=== PATIENT | female | born 1980 | race Caucasian/White ===

== ENCOUNTER 2020-05-17 15:22 | Outpatient (REF) | payer BC, SELFPAY ==
--- NOTE | 2020-05-17 | XR_ITS ---
EXAMINATION: XR SHOULDER, RIGHT CLINICAL INFORMATION: Right shoulder sprain COMPARISON: 01/19/2019 TECHNIQUE: AP external rotation, Grashey, scapular Y, and axillary views of the right shoulder. FINDINGS: No fracture or dislocation. The glenohumeral joint is well aligned. The joint space is maintained. The acromioclavicular joint is intact with mild hypertrophic degenerative change. Soft tissue calcification seen on the axillary view adjacent to the greater tuberosity of the humerus suggestive of calcific tendinosis of the rotator cuff. This is similar to prior. The visualized ribs are intact. The visualized lung is clear. IMPRESSION: Mild degenerative change at the acromioclavicular joint. Persistent soft tissue calcification suggestive of calcific tendinosis of the rotator cuff.
== END 2020-05-17 15:23 | disposition home or self-care (01) ==
LOC: HO.XRAY 15:22
PROVIDERS: PCP Internal Medicine; Visit Provider Internal Medicine
DX: S46.911A Strain of unspecified muscle, fascia and tendon at shoulder and upper arm level, right arm, initial encounter (principal)
CPT/HCPCS: 73030

== ENCOUNTER 2022-01-21 13:50 | Outpatient (REF) | payer BC, SELFPAY ==
--- NOTE | ~2022-01-21 | XR_ITS ---
EXAMINATION: XR CHEST CLINICAL INFORMATION: Cough. Right chest wall pain. Rule out pneumonia. COMPARISON: None TECHNIQUE: 2 views of the chest were obtained. FINDINGS: No significant abnormality is noted involving the heart, lungs, mediastinum, bony thorax or soft tissues. Bilateral breast prostheses. Status post cholecystectomy. XR/XR chest 2V IMPRESSION: Unremarkable examination.
== END 2022-01-21 13:51 | disposition home or self-care (01) ==
LOC: HO.XRAY 13:50
PROVIDERS: Visit Provider Internal Medicine
DX: R05.9 Cough, unspecified (principal); R07.89 Other chest pain; Z90.49 Acquired absence of other specified parts of digestive tract
CPT/HCPCS: 71046

== ENCOUNTER 2023-06-15 10:28 | Outpatient (REF) | payer BC, SELFPAY ==
--- NOTE | ~2023-06-15 | XR_ITS ---
EXAMINATION: XR WRIST, RIGHT XR HAND, RIGHT CLINICAL INFORMATION: Right hand and wrist pain. Question spur, osteoarthritis COMPARISON: March 10, 2018. TECHNIQUE: PA, oblique, lateral and navicular views of the right hand and wrist. FINDINGS: RIGHT WRIST: Moderate degenerative changes in the first carpometacarpal joint with joint space narrowing and hypertrophic change. Bone mineralization is normal. No displaced fracture. RIGHT HAND: Bone mineralization is normal. No displaced fracture. Alignment is preserved. XR/XR hand wrist RT IMPRESSION: 1. Moderate degenerative changes in the first carpometacarpal joint. 2. No displaced fracture. Recommend follow-up imaging in 10-14 days if fracture is suspected.
== END 2023-06-15 10:29 | disposition home or self-care (01) ==
LOC: HO.XRAY 10:28
PROVIDERS: PCP Internal Medicine; Visit Provider Internal Medicine
DX: M25.531 Pain in right wrist (principal); M79.641 Pain in right hand
CPT/HCPCS: 73110; 73130

== ENCOUNTER 2024-06-08 15:15 | Outpatient (REF) | payer BC, SELFPAY ==
[2024-06-08 15:31] LABS: MANUAL DIFF FLAG NO
[2024-06-08 15:42] LABS: Basophils Percent Auto 0.7 % (0-2); Eosinophils Absolute Auto 0.3 X10*3/uL (0.0-0.4); Eosinophils Percent Auto 5.2 % (0-4); Hematocrit 27.1 % (37.0-47.0); Imm Gran Abs Auto 0.03 X10*3/uL (0.00-0.03); Imm Gran Pct Auto 0.5 % (0.0-0.4); Lymphocytes Absolute Auto 1.9 X10*3/uL (1.2-4.9); Lymphocytes Percent Auto 32.1 % (20-40); Mean Corpuscular HGB Conc 29.5 g/dl (31.0-35.0); Mean Corpuscular Hemoglobin 19.1 pg (27.0-33.0); Monocytes Absolute Auto 0.5 X10*3/uL (0.1-1.2); Monocytes Percent Auto 7.9 % (2-11); Neutrophils Absolute Auto 3.2 x10*3/uL (2.0-8.3); Neutrophils Percent Auto 53.6 % (45-73); Platelet Count 350 X10*3/uL (160-400); Red Blood Count 4.18 X10*6/uL (4.20-5.50); Red Cell Distribution Width 18.1 % (11.0-16.0); White Blood Count 5.9 X10*3/uL (4.8-10.8)
[2024-06-08 15:43] LABS: Mean Corpuscular Volume 64.8 fL (80.0-98.0)
[2024-06-08 16:27] LABS: Alanine Aminotransferase 16 U/L (0-31); Albumin Level 4.3 g/dL (3.5-5.0); Alkaline Phosphatase 58 U/L (39-117); Anion Gap 11 (12-20); Aspartate Amino Transferase 26 U/L (5-31); Bilirubin Total 0.3 mg/dL (0.0-1.0); Blood Urea Nitrogen 18 mg/dL (9-16); Calcium 9.5 mg/dL (8.4-10.2); Carbon Dioxide 28 mmol/L (22-29); Chloride 104 mmol/L (96-108); Cholesterol 166 mg/dL (<200); Estimated Glomerular Filt Rate > 60; Glucose Random 91 mg/dL (60-115); Potassium 4.1 mmol/L (3.3-5.1); Sodium 139 mmol/L (135-145); Total Protein 7.4 g/dL (6.5-8.0)
[2024-06-08 16:44] LABS: Free T4 (Free Thyroxine) 1.01 ng/dL (0.71-1.85); Thyroid Stimulating Hormone 0.82 uIU/mL (0.32-4.0)
[2024-06-08 16:50] LABS: Vitamin B12 791 pg/mL (200-900)
[2024-06-09 07:54] LABS: Follicle Stimulating Hormone 7.1 mIU/mL; Lutenizing Hormone 5.3 mIU/mL
== END 2024-06-08 15:16 | disposition home or self-care (01) ==
LOC: HO.LAB 15:15
PROVIDERS: PCP Internal Medicine; Visit Provider Internal Medicine
DX: N95.9 Unspecified menopausal and perimenopausal disorder (principal); R63.5 Abnormal weight gain; R53.83 Other fatigue
CPT/HCPCS: 36415; 80053; 82465; 82607; 83001; 83002; 84439; 84443; 85025

== ENCOUNTER 2024-06-16 15:51 | Outpatient (REF) | payer BC, SELFPAY ==
[2024-06-16 16:07] LABS: MANUAL DIFF FLAG NO
[2024-06-16 16:57] LABS: Basophils Absolute Auto 0.1 X10*3/uL (0.0-0.2); Basophils Percent Auto 0.7 % (0-2); Eosinophils Absolute Auto 0.3 X10*3/uL (0.0-0.4); Eosinophils Percent Auto 4.8 % (0-4); Hematocrit 29.1 % (37.0-47.0); Hemoglobin 8.4 g/dl (12.0-16.0); Imm Gran Abs Auto 0.02 X10*3/uL (0.00-0.03); Imm Gran Pct Auto 0.3 % (0.0-0.4); Lymphocytes Absolute Auto 2.1 X10*3/uL (1.2-4.9); Lymphocytes Percent Auto 30.5 % (20-40); Mean Corpuscular HGB Conc 28.9 g/dl (31.0-35.0); Mean Corpuscular Hemoglobin 19.4 pg (27.0-33.0); Mean Corpuscular Volume 67.1 fL (80.0-98.0); Mean Platelet Volume 10.3 fL (9.4-12.3); Monocytes Absolute Auto 0.9 X10*3/uL (0.1-1.2); Monocytes Percent Auto 12.8 % (2-11); Neutrophils Absolute Auto 3.5 x10*3/uL (2.0-8.3); Neutrophils Percent Auto 50.9 % (45-73); Platelet Count 408 X10*3/uL (160-400); Red Blood Count 4.34 X10*6/uL (4.20-5.50); Red Cell Distribution Width 19.6 % (11.0-16.0); White Blood Count 6.8 X10*3/uL (4.8-10.8)
[2024-06-16 17:17] LABS: Iron 14 mcg/dL (30-160); Percent Iron Saturation 4 % (15-50); Total Iron Binding Capacity 396 mcg/dL (228-428); Unsaturated Iron Binding 382 ug/dL
== END 2024-06-16 15:52 | disposition home or self-care (01) ==
LOC: HO.LAB 15:51
PROVIDERS: PCP Internal Medicine; Visit Provider Internal Medicine
DX: D64.9 Anemia, unspecified (principal)
CPT/HCPCS: 36415; 83540; 85025

== ENCOUNTER 2025-04-10 14:55 | Outpatient (REF) | payer BC, SELFPAY ==
[2025-04-10 16:16] LABS: MANUAL DIFF FLAG NO
[2025-04-10 16:30] LABS: Hematocrit 38.8 % (37.0-47.0); Hemoglobin 12.6 g/dl (12.0-16.0); Imm Gran Abs Auto 0.03 X10*3/uL (0.00-0.03); Imm Gran Pct Auto 0.4 % (0.0-0.4); Lymphocytes Absolute Auto 1.7 X10*3/uL (1.2-4.9); Mean Corpuscular HGB Conc 32.5 g/dl (31.0-35.0); Mean Corpuscular Hemoglobin 26.9 pg (27.0-33.0); Mean Corpuscular Volume 82.9 fL (80.0-98.0); NRBC Abs Auto 0.000 X10*3/uL (0.0-0.012); NRBC Pct Auto 0.0 /100WBC (0.0-0.2); Platelet Count 350 X10*3/uL (160-400); Red Blood Count 4.68 X10*6/uL (4.20-5.50); White Blood Count 8.4 X10*3/uL (4.8-10.8)
[2025-04-10 16:45] LABS: Appearance Urine Clear; Glucose Urine UA Negative (Negative); PH 6.0 (5.0-9.0); Specific Gravity - Urine 1.010 (1.005-1.025); UMIC TRIGGER UA YES
== END 2025-04-10 14:56 | disposition home or self-care (01) ==
LOC: HO.LAB 14:55
PROVIDERS: PCP Internal Medicine; Visit Provider Physician Assistant Medical
DX: R53.83 Other fatigue (principal); R10.31 Right lower quadrant pain; R55 Syncope and collapse; N92.6 Irregular menstruation, unspecified
CPT/HCPCS: 36415; 81001; 84443; 85025; 87086; 96127

== ENCOUNTER 2025-04-10 14:55 | Outpatient (AMB) | payer BC, SELFPAY ==
--- OUTSIDE RECORDS SUMMARY | 2025-04-08 00:53 | XMS_ITS | Continuity of Care Document ---
Author Organization [facility] ter Address [address] [place] [id number] Care Team Providers Care Photogeologist Name Role Phone Ambrose MONTES, Esthela Nuñez Primary Care Physician [phone] [id number] Date(s): 04/07/25 - 04/08/[address] [address]- Encounter Diagnosis Vasovagal syncope(Final) - 04/07/25 Lower abdominal pain(Final) - 04/07/25 Discharge Disposition: A-D/C Home Attending Physician: Jef Gallegos DO Admitting Physician: Jef Gallegos DO Referring Physician: Not on Staff, Referring MD Encounter Type: Disch ES Allergies, Adverse Reactions, Alerts Substance Criticality Severity Reaction Reaction Severity Status penicillin Rash Active sulfonamides Rash Active Shellfish Active Medications azelaic acid 15% topical gel 1 application, Topically, 2 times a day, # 30 Gm, 0 Refills, Maintenance, 07/06/24 10:59:00 AM EST, Gel, Partial fill upon patient request if the prescription is for a schedule II opioid drug. Start Date: 07/06/24 Status: Ordered Medication Dispense Status: Completed Quantity: 30.0 Unit: g Total Allowed Fills: 1 Fills Dispensed: 0 Diflucan 150 mg oral tablet 1 tablet = 150 mg, By Mouth, Once, # 1 tablet, 0 Refills, Soft Stop, 03/19/25 2:20:00 PM EDT, Tablet, [facility] # [facility], Partial fill upon patient request if the prescription is for a schedule II opioid drug., 150.1, cm, 03/12/25 14:05:00 EDT, Height, 61.7, kg, 09/19/24 16:50:00 EST, Dry Weight Start Date: 03/19/25 Status: Ordered Medication Dispense Status: Completed Quantity: 1.0 Unit: tablet Total Allowed Fills: 1 Fills Dispensed: 0 Estradiol Patch 0.05 mg/24 hours twice weekly transdermal film, extended release 1 patch, Topically, Every Wednesday and , # 26 patch, 4 Refills, Maintenance, 03/12/25 2:36:00 PM EDT, [facility] # [facility], Partial fill upon patient request if the prescription is for a scheduleII opioid drug., 1 patch Topically Every Wednesday and , 150.1, cm, 03/12/25 14:05:00 EDT, Height, 61.7, kg, 09/19/24 16:50:00 EST, Dry Weight Start Date: 03/12/25 Status: Ordered Medication Dispense Status: Completed Quantity: 26.0 Unit: patch Total Allowed Fills: 5 Fills Dispensed: 0 Mirena 52 mg intrauterine device 1 each = 52 mg, Once, 0 Refills, Maintenance, 10/18/24 10:00:00 AM EDT, Partial fill upon patient request if the prescription is for a schedule II opioid drug. Start Date: 10/18/24 Status: Ordered Medication Dispense Status: Completed Total Allowed Fills: 1 Fills Dispensed: 0 Multivitamin 0 Refills, Maintenance, 07/06/24 11:00:00 AM EST, Partial fill upon patient request if the prescription is for a schedule II opioid drug. Start Date: 07/06/24 Status: Ordered Medication Dispense Status: Completed Total Allowed Fills: 1 Fills Dispensed: 0 norethindrone 5 mg oral tablet 5 mg, 1, tablet, By Mouth, Daily, # 90 tablet, Refills 4, Tot. Refills 4, Maintenance, 03/12/25 2:36:00 PM EDT, Route to Pharmacy Electronically, [facility] # [facility], Partial fill upon patient requestif the prescription is for a schedule II opioid drug., 150.1, cm, 03/12/25 14:05:00 EDT, Height, 61.7, kg, 09/19/24 16:50:00 EST, Dry Weight Start Date: 03/12/25 Status: Ordered Medication Dispense Status: Completed Quantity: 90.0 Unit: tablet Total Allowed Fills: 5 Fills Dispensed: 0 Probiotic Formula By Mouth, Daily, 0 Refills, Maintenance, 07/06/24 11:00:00 AM EST, Partial fill upon patient requestif the prescription is for a schedule II opioid drug. Start Date: 07/06/24 Status: Ordered Medication Dispense Status: Completed Total Allowed Fills: 1 Fills Dispensed: 0 Vitamin C 250 mg oral tablet 1 tablet = 250 mg, By Mouth, Daily, # 30 tablet, 0 Refills, Maintenance, 07/06/24 11:00:00 AM EST, Tablet, Partial fill upon patient request if the prescription is for a schedule II opioid drug. Start Date: 07/06/24 Status: Ordered Medication Dispense Status: Completed Quantity: 30.0 Unit: tablet Total Allowed Fills: 1 Fills Dispensed: 0 ZyrTEC 10 mg oral tablet 1 tablet = 10 mg, By Mouth, Daily, # 30 tablet, 0 Refills, Maintenance, 12/11/24 11:42:00 AM EDT, Tablet, Partial fill upon patient request if the prescription is for a schedule II opioid drug. Start Date: 12/11/24 Status: Ordered Medication Dispense Status: Completed Quantity: 30.0 Unit: tablet Total Allowed Fills: 1 Fills Dispensed: 0 Problem List Condition Confirmation Course Effective Dates Status [facility] atus Informant IUD check up Confirmed Active Iron deficiency anemia Confirmed Active Fibroid uterus Confirmed Active Results Radiology Reports * Exam Date Time Procedure Performing Provider Status 04/08/25 12:13 AM US Pelvic Transvaginal Au th (Verified) Notes: (US Pelvic Transvaginal) Reason For Exam: Pelvic Pain;Other: RESULT: US Pelvic Transvaginal US Pelvic Transabdominal, US Pelvic Doppler Comp, US Pelvic Transvaginal Hx of Present Illness: Pt from home post syncopal episode * fall, bilateral ovary pain.pt had a feeling as thoughs she needed to use the bathroom, began to see white spots, ringing in my ear +nausea Pt broke her fall w arms outstretched, supporeted herself by tub,; Reason: Other:; Pelvic Pain; Clinical Question(s): Torsion; Order Comment: US Pelvic Non-Ob Comp Prep COMPARISON: CT abdomen pelvis 04/07/2025, pelvic ultrasound 09/19/2024 TECHNIQUE: Transabdominal and transvaginal pelvic ultrasound with grayscale, color Doppler, and spectral Doppler analysis. 3-D rendered images were obtained to further evaluate uterine and endometrial morphology. FINDINGS: UTERUS: Size: 9.6 x 6.5 x 7.0 cm, volume 226.9 cc. Endometrial thickness: 0.8 cm. Morphology: Partially visualized intrauterine device, which is mostly obscured by the overlying fibroid. Intramural fibroid in the anterior uterine fundus measuring 3.6 x 2.6 x 3.4 cm. RIGHT OVARY: Size: 2.9 x 1.4 x 2.1 cm, volume 4.4 cc. Morphology: Normal echotexture. No pathologic cysts or mass. Normal arterial and venous waveforms. LEFT OVARY: Size: 2.1 x 1.0 x 2.6 cm, volume 2.9 cc. Morphology: Normal echotexture. No pathologic cysts or mass. Normal arterial and venous waveforms. ADNEXA: Normal. No adnexal masses or fluid collections. IMPRESSION: No evidence of torsion. Interval enlargement of the uterine fibroid now measuring up to 3.6 cm. IUD not well visualized, obscured by the fibroid. I have personally reviewed the images and I agree with this report. WSN: [id number] Ordering Physician: Jef Gallegos Dictated By: Saumya Vick MD Dictated Date/Time: 04/08/25 4:20 am Reviewed By: Ariane Katz MD Signed By: Ariane Katz MD Signed Date/Time: 04/08/25 4:25 am Transcribed By: MELINDA Transcribed Date/Time: 04/08/25 0:27 am * Exam Date Time Procedure Performing Provider Status 04/08/25 12:13 AM US Pelvic Doppler Comp Au th (Verified) Notes: (US Pelvic Doppler Comp) Reason For Exam: Pelvic Pain;Other: RESULT: US Pelvic Doppler Comp US Pelvic Transabdominal, US Pelvic Doppler Comp, US Pelvic Transvaginal Hx of Present Illness: Pt from home post syncopal episode * fall, bilateral ovary pain.pt had a feeling as thoughs she needed to use the bathroom, began to see white spots, ringing in my ear +nausea Pt broke her fall w arms outstretched, supporeted herself by tub,; Reason: Other:; Pelvic Pain; Clinical Question(s): Torsion; Order Comment: US Pelvic Non-Ob Comp Prep COMPARISON: CT abdomen pelvis 04/07/2025, pelvic ultrasound 09/19/2024 TECHNIQUE: Transabdominal and transvaginal pelvic ultrasound with grayscale, color Doppler, and spectral Doppler analysis. 3-D rendered images were obtained to further evaluate uterine and endometrial morphology. FINDINGS: UTERUS: Size: 9.6 x 6.5 x 7.0 cm, volume 226.9 cc. Endometrial thickness: 0.8 cm. Morphology: Partially visualized intrauterine device, which is mostly obscured by the overlying fibroid. Intramural fibroid in the anterior uterine fundus measuring 3.6 x 2.6 x 3.4 cm. RIGHT OVARY: Size: 2.9 x 1.4 x 2.1 cm, volume 4.4 cc. Morphology: Normal echotexture. No pathologic cysts or mass. Normal arterial and venous waveforms. LEFT OVARY: Size: 2.1 x 1.0 x 2.6 cm, volume 2.9 cc. Morphology: Normal echotexture. No pathologic cysts or mass. Normal arterial and venous waveforms. ADNEXA: Normal. No adnexal masses or fluid collections. IMPRESSION: No evidence of torsion. Interval enlargement of the uterine fibroid now measuring up to 3.6 cm. IUD not well visualized, obscured by the fibroid. I have personally reviewed the images and I agree with this report. WSN: [id number] Ordering Physician: Jef Gallegos Dictated By: Saumya Vick MD Dictated Date/Time: 04/08/25 4:20 am Reviewed By: Ariane Katz MD Signed By: Ariane Katz MD Signed Date/Time: 04/08/25 4:25 am Transcribed By: MELINDA Transcribed Date/Time: 04/08/25 0:27 am * Exam Date Time Procedure Performing Provider Status 04/08/25 12:13 AM US Pelvic Transabdominal Auth (Verified) Notes: (US Pelvic Transabdominal) Reason For Exam: Pelvic Pain;Other: RESULT: US Pelvic Transabdominal US Pelvic Transabdominal, US Pelvic Doppler Comp, US Pelvic Transvaginal Hx of Present Illness: Pt from home post syncopal episode * fall, bilateral ovary pain.pt had a feeling as thoughs she needed to use the bathroom, began to see white spots, ringing in my ear +nausea Pt broke her fall w arms outstretched, supporeted herself by tub,; Reason: Other:; Pelvic Pain; Clinical Question(s): Torsion; Order Comment: US Pelvic Non-Ob Comp Prep COMPARISON: CT abdomen pelvis 04/07/2025, pelvic ultrasound 09/19/2024 TECHNIQUE: Transabdominal and transvaginal pelvic ultrasound with grayscale, color Doppler, and spectral Doppler analysis. 3-D rendered images were obtained to further evaluate uterine and endometrial morphology. FINDINGS: UTERUS: Size: 9.6 x 6.5 x 7.0 cm, volume 226.9 cc. Endometrial thickness: 0.8 cm. Morphology: Partially visualized intrauterine device, which is mostly obscured by the overlying fibroid. Intramural fibroid in the anterior uterine fundus measuring 3.6 x 2.6 x 3.4 cm. RIGHT OVARY: Size: 2.9 x 1.4 x 2.1 cm, volume 4.4 cc. Morphology: Normal echotexture. No pathologic cysts or mass. Normal arterial and venous waveforms. LEFT OVARY: Size: 2.1 x 1.0 x 2.6 cm, volume 2.9 cc. Morphology: Normal echotexture. No pathologic cysts or mass. Normal arterial and venous waveforms. ADNEXA: Normal. No adnexal masses or fluid collections. IMPRESSION: No evidence of torsion. Interval enlargement of the uterine fibroid now measuring up to 3.6 cm. IUD not well visualized, obscured by the fibroid. I have personally reviewed the images and I agree with this report. WSN: [id number] Ordering Physician: Jef Gallegos Dictated By: Saumya Vick MD Dictated Date/Time: 04/08/25 4:20 am Reviewed By: Ariane Katz MD Signed By: Ariane Katz MD Signed Date/Time: 04/08/25 4:25 am Transcribed By: MELINDA Transcribed Date/Time: 04/08/25 0:27 am * Exam Date Time Procedure Performing Provider Status 04/07/25 7:[address] Abd/Pelvis W/ IV Contrast Only Auth (Verified) Notes: (CT Abd/Pelvis W/ IV Contrast Only) Reason For Exam: sudden lower abdominal pain;Other: RESULT: CT Abd/Pelvis W/ IV Contrast Only CT Abd/Pelvis W/ IV Contrast Only Hx of Present Illness: Pt from home post syncopal episode * fall, bilateral ovary pain.pt had a feeling as thoughs she needed to use the bathroom, began to see white spots, ringing in my ear +nausea Pt broke her fall w arms outstretched, supporeted herself by tub,; Reason: Other:; sudden lower abdominal pain; Clinical Question(s): Appendicitis; Order : TECHNIQUE: Spiral CT through the abdomen and pelvis with IV contrast formatted in 3 planes. 80 cc of Isovue 300 was administered intravenously. This study was performed without oral contrast. Weight-based protocol using automatic tube modulation was used to optimize exposure parameters. CTDIvol Body: 13.20 mGy, DLP Body: 648 mGy*cm. COMPARISON: None. FINDINGS: Hair Clipper Power View Findings, Lines and Tubes: None. Visualized Chest: Lung bases are clear. No pleural effusion. The heart is normal in size. No pericardial effusion. Diaphragm: Normal. Liver: Hypoattenuating 9 mm focus within the inferior right hepatic lobe likely cyst or hemangioma. Gallbladder: Absent consistent with prior cholecystectomy. Bile ducts: No biliary ductal dilation. Spleen: Normal. Pancreas: Normal. Adrenal glands: Normal. Kidneys and ureters: No hydronephrosis, stones, or suspicious masses. Bladder: Normal. Reproductive organs: The uterus is slightly enlarged measuring up to 11.5 cm in caudocranial dimensions. Intrauterine device in place. There is a fibroid within the anterior aspect of the uterus measuring up to 3.2 x 2.7 cm. No adnexal mass. Stomach, small bowel, and large bowel: Normal. Appendix: Normal. Peritoneum and retroperitoneum: No ascites or pneumoperitoneum. No omental or mesenteric lesions. Lymph nodes: No enlarged lymph nodes. Blood vessels: Normal. No aneurysm. No evidence of venous thrombosis. Abdominal and pelvic wall: Unremarkable. Bones: No acute abnormality. IMPRESSION: No acute findings within the abdomen or pelvis. The uterus appears slightly enlarged with an intrauterine device in place and a prominent fibroid. Denies any further evaluated with ultrasound if clinically indicated. WSN: [id number] Ordering Physician: Jef Gallegos Dictated By: Adithya Lewis DO Dictated Date/Time: 04/07/25 8:12 pm Reviewed By: Adithya Lewis DO Signed By: Adithya Lewis DO Signed Date/Time: 04/07/25 8:12 pm Transcribed By: MELINDA Transcribed Date/Time: 04/07/25 8:00 pm Vital Signs Most recent to oldest [Reference Range]: 1 2 3 Height 147 cm (04/07/25 9:35 PM) 147 cm (04/07/25 3:01 PM) Weight 60 kg (04/07/25 9:35 PM) 60 kg (04/07/25 3:01 PM) Oxygen Saturation [94-100 %] 100 % (04/08/25 12:51 AM) 100 % (04/07/25 9:35 PM) 99 % (04/07/25 3:01 PM) Pulse Rate [55-90 bpm] 99 bpm *H* (04/08/25 12:51 AM) 99 bpm *H* (04/07/25 9:35 PM) 75 bpm (04/07/25 3:01 PM) Body Mass Index [18.5-24.99 kg/m2] 27.77 kg/m2 *H* (04/07/25 9:35 PM) 27.77 kg/m2 *H* (04/07/25 3:01 PM) Blood Pressure [90-138/55-84 mm Hg] 135/82mm Hg (04/08/25 12:51 AM) 127/78mm Hg (04/07/25 9:35 PM) 135/86mm Hg (04/07/25 3:01 PM) Respiratory Rate [16-30 br/min] 16 br/min (04/08/25 12:51 AM) 16 br/min (04/07/25 9:35 PM) 18 br/min (04/07/25 3:01 PM) Temperature [96.8-100.4 DegF] 98.1 DegF (04/08/25 12:51 AM) 98.3 DegF (04/07/25 9:35 PM) 97.6 DegF (04/07/25 3:01 PM) Mode of Delivery (Oxygen) Room air (04/08/25 12:51 AM) Room air (04/07/25 9:35 PM) Room air (04/07/25 3:01 PM) Blood pressure sites Arm, left (04/08/25 12:51 AM) Arm, left (04/07/25 9:35 PM) Arm, left (04/07/25 3:01 PM) Temperature Route Oral (04/08/25 12:51 AM) Oral (04/07/25 9:35 PM) Oral (04/07/25 3:01 PM) Dry Weight 60 kg (04/07/25 9:35 PM) 60 kg (04/07/25 3:01 PM) Weight Obtained Via Patient/family state d (04/07/25 3:01 PM) Dry Weight Obtained Via Patient/family s tated (04/07/25 3:01 PM) Social History Social History Type Response Smoking Status Never (less than 100 in lifetime) entered on: 12/11/24 Sexual Orientation Self described orien tation: ; Straight or heterosexual Gender Identity Gender identity: Sex Sex Representation Female (finding) Status Not EKG study * Event Display: ECG 12-Lead Authored Date: Please click on pdf link to open report * Event Display: ECG 12-Lead Authored Date: Ventricular Rate: 61 BPM Atrial Rate: 61 BPM P-R Interval: 140 ms QRS Duration: 72 ms Q-T Interval: 410 ms QTC Calculation(Bazett): 412 ms P [place]: 18 degrees R [place]: 37 degrees T [place]: 47 degrees Normal sinus rhythm Normal ECG No previous ECGs available Confirmed by MODESTO MARTI MD ([id number]) on 04/08/2025 1:46:10 PM [place]: MODESTO MARTI MD Patient Care team information Care Team Personnel Name: Esthela Boggs MD Position: Reference Physician Member Role: PCP Address: [address] [place] [id number] Telecom: Care Team Related Persons Name: JEFFREY PROCTOR Name: CHELSEA MONREAL Name: CHELSEA GARCIA Insurance Providers Guarantor name: KYREEMurtaza PROCTOR Health Plan Information #: 1 Payer: [facility] Payer Identifier: NA Member Number: [id number] Group Number: [id number] Subscriber Identifier: [id number] Relationship to Subscriber: self Coverage Type: NA Coverage Verification Date: NA Telecom: NA Address: NA
--- NOTE | 2025-04-10 08:19 | A.OFFPC_ITS ---
Vital Signs 04/10/25 08:21 Height 4 ft 11 in Weight 135 lb BMI 27.3 BP 136/80 Blood Pressure Location Rt brachial Position Sitting Pulse 76 Pulse Source Pulse Oximeter Temp 98.5 F Temp Source Temporal Artery Scan Pulse Oximetry (%) 99 Oxygen Delivery Method Room Air Intake Visit Reasons: Hospital F/U Wedger And Gluer Required: No Accompanied by: Self / Same As Patient Allergies amoxicillin Allergy (Verified 04/10/25 15:03) Hives shellfish derived (shellfish) Allergy (Verified 04/10/25 15:03) Unknown Sulfa (Sulfonamide Antibiotics) Allergy (Verified 04/12/25 20:19) Vomiting Medication List - Last Reconciled 04/16/25 by CLAIRE Valencia estradiol 1 patch transdermal 2XW fluconazole 150 mg PO Q3D 2 doses nitrofurantoin monohyd/m-cryst 100 mg 100 mg PO Q12H 7 days norethindrone acetate 5 mg PO BID Tobacco use date assessed: 04/10/25 Dental Screening Dental Screen Date: 04/10/25 Did you have a dental visit in the last 12 months?: Yes Did you have a dental problem in the last 6 months where you did not have access to dental care?: No HPI HPI Comments History of Present Illness Details The patient is a 44-year-old female presenting with severe abdominal pain and syncope. The episode began on a Wednesday, 04/07 while she was at home, experiencing sudden severe abdominal pain that led to syncope. She was taken to the hospital where a vasovagal reaction was suspected, and imaging studies were performed, including a CT scan and pelvic ultrasound, which showed no signs of rupture or kidney stones. The patient reports ongoing lower abdominal pain, particularly on the right side, exacerbated by movement and pressure. She also experiences fatigue and bloating, with a history of perimenopausal symptoms including heavy bleeding and fibroid growth. 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 She has an IUD in place. The patient has a history of two sections and a laparoscopic cholecystectomy. She has been managing perimenopausal symptoms with hormonal treatments, including an IUD and estrogen therapy, but continues to experience irregular bleeding. Patient was informed and verbally consented to the use of an ambient scribe for clinic note documentation during this visit. [facility] Medical History (Updated 04/16/25 @ 10:59 by CLAIRE Valencia) Abdominal pain Fatigue Flank pain, acute Family History (Updated 04/10/25 @ 15:07 by Katelin Ramirez MA) Mother No problems noted. Father No problems noted. Social History Housing: House Patient Tobacco Use Status: Never used Tobacco e-Cigarette/Vaping Use: Never Used Advance Directives: No Advance Directives Information Provided: Yes service: No Current occupational status: employed Cognitive needs: No Hearing needs: No Vision needs: Yes (rx glasses) Questionnaire PHQ-9 Over the last 2 weeks, how often have you been bothered by any of the following problems? 1. Little interest or pleasure in doing things: not at all 2. Feeling down, depressed, or hopeless: not at all 3. Trouble falling or staying asleep, or sleeping too much: not at all 4. Feeling tired or having little energy: not at all 5. Poor appetite or overeating: not at all 6. Feeling bad about yourself - or that you are a failure or have let yourself or your family down: not at all 7. Trouble concentrating on things, such as reading the newspaper or watching television: not at all 8. Moving or speaking so slowly that other people could have noticed. Or the opposite - being so fidgety or restless that you have been moving around a lot more than usual: not at all 9. Thoughts that you would be better off or of hurting yourself in some way: not at all Total score: 0 Source: Developed by Drs. Adithya Nunes, Xochilt Crowell, Oscar Batista and colleagues, with an educational eric from [employer]. Thrive Questionnaire Date Thrive assessed: 04/10/25 I am a: Patient Within the past 12 months, did the food you bought not last and you didn't have the money to get more?: Never true Within the past 12 months, did you worry whether your food would run out before you got money to buy more?: Never true Do you have trouble paying for medicines?: No Do you have trouble getting transportation to medical appointments?: No Do you have trouble paying your heating and electricity bill?: No Do you have trouble taking care of your child, family member or friend?: No Do you have trouble with day-to-day activities such as bathing, preparing meals, shopping, managing finances, etc.?: No Are you currently unemployed and looking for a job?: No Are you interested in more education?: No THRIVE Score: 0 AUDIT C Alcohol Use Questionnaire (AUDIT-C) 1. How often do you have a drink containing alcohol?: Monthly or less (sometimes) 2. How many drinks containing alcohol do you have on a typical day when you are drinking?: 1 or 2 3. How often do you have six or more drinks on one occasion?: Less than monthly Total Score: 2 MELY-7 AMB Questionnaire MELY-7 Date MELY - 7 assessed: 04/10/25 Feeling nervous, anxious, or on edge: 0 = Not at all Not being able to stop or control worryin = Not at all Worrying too much about different things: 0 = Not at all Trouble relaxin = Not at all Being so restless that it is hard to sit still: 0 = Not at all Becoming easily annoyed or irritable: 0 = Not at all Feeling afraid as if something awful might happen: 0 = Not at all Total MELY-7 score (0-4 normal; 5-9 mild; 10-14 moderate; 15-21 severe): 0 Source: Developed by Drs. Adithya Nunes, Xochilt Crowell, Oscar Batista and colleagues, with an educational eric from [employer]. Review of Systems Const Details: CONSTITUTIONAL Negative HEAD/NECK Negative RESPIRATORY Negative CARDIOVASCULAR Negative GASTROINTESTINAL Reports severe abdominal pain, bloating, and constipation. Denies diarrhea GENITOURINARY Reports irregular bleeding and history of fibroids. Denies changes in urination frequency or dysuria. MUSCULOSKELETAL Negative NEUROLOGICAL Reports syncope and fatigue. PSYCHIATRIC Negative Physical exam (Primary Care) Vital Signs: Last Vital Signs Temp 98.5 F 04/10/25 08:21 Pulse 76 04/10/25 08:21 BP 136/80 04/10/25 08:21 Pulse Ox 99 04/10/25 08:21 Oxygen Delivery Method Room Air 04/10/25 08:21 BMI result Body Mass Index 27.3 GENERAL Well developed, Well nourished, in no apparent distress HEENT Head-Normocephalic Eyes- PERRLA, EOMI, Conjuctiva clear, lids WNL Ears- Canals clear, TMs WNL Mouth/Throat-No lesions, no erythema, no exudate Neck- Supple, No lymphadenopathy, thyroid WNL RESPIRATORY Normal I:E, Clear to auscultation CARDIOVASCULAR Regular, rate and rhythm, No murmurs or rubs GASTROINTESTINAL Soft, tender in right lower abdomen, no guarding or rebound, normal bowel sounds, no masses, mild CVA tenderness on right MUSCULOSKELETAL Back- nontender Joints- no pain swelling or deformity NEUROLOGICAL Gait normal PSYCHIATRIC Oriented to person, place and time Mood and affect WNL Appearance WNL Speech WNL Thought processes WNL Tobacco/Smoking Status: Tobacco use Status Tobacco use date assessed 04/10/25 04/10/25 08:23 Patient Tobacco Use Status Never used Tobacco 04/10/25 08:23 e-Cigarette/Vaping Use Never Used 04/10/25 08:23 PHQ-9: PHQ-9 Score PHQ-9: Total score 0 04/10/25 15:08 Thrive Assessment: Date of Thrive Assessment Date Thrive assessed 04/10/25 04/10/25 08:23 Results Reviewed Results Reviewed: [facility] - Imaging: CT scan and pelvic ultrasound showed no signs of rupture or kidney stones. - Laboratory: Blood work was normal. Coding Level of Care Code New Pt New Pt Level 4 (03315) Patient Type New Diagnoses Right lower quadrant abdominal pain R10.31 Abdominal location: right lower quadrant Flank pain, acute R10.9 Other fatigue R53.83 Fatigue type: other Vasovagal syncope R55 Irregular menses N92.6 Time Spent (min) 35 Comment Time spent on chart review, H&P, patient education, placing orders, documentation Assessment & Plan Assessment & Plan (1) Abdominal pain: Code(s): R10.9 - Unspecified abdominal pain Category: Medical Qualifiers: Abdominal location: right lower quadrant Qualified Code(s): R10.31 - Right lower quadrant pain Plan: The patient reports ongoing abdominal pain, particularly in the lower right quadrant, exacerbated by movement and pressure. Further diagnostic evaluation, including a possible ultrasound of the kidneys, was discussed to rule out other causes. Will order labs. (2) Flank pain, acute: Code(s): R10.9 - Unspecified abdominal pain Category: Medical Plan: Will get Renal US. Patient to follow up as needed if symptoms persist or worsen. (3) Fatigue: Code(s): R53.83 - Other fatigue Category: Medical Qualifiers: Fatigue type: other Qualified Code(s): R53.83 - Other fatigue Plan: Will get labs to evaluate. (4) Vasovagal syncope: Code(s): R55 - Syncope and collapse Plan: The patient experienced a vasovagal syncope episode, likely triggered by severe abdominal pain. No immediate interventions were discussed during the visit, but monitoring and follow-up were implied. (5) Irregular menses: Code(s): N92.6 - Irregular menstruation, unspecified Plan: The patient is experiencing perimenopausal symptoms, including heavy bleeding and hormonal imbalances. Current management includes an IUD and estrogen therapy, with plans for further evaluation and potential surgical intervention. The patient has a known uterine fibroid, which has been contributing to her symptoms of bloating and irregular bleeding. A surgical consultation for a hys terectomy is scheduled to address these symptoms. Plan During the visit, we discussed the patient's recent episode of vasovagal syncope and the ongoing management of her uterine fibroid and perimenopausal symptoms. We reviewed the results of her recent imaging and lab tests, which were unremarkable, and considered further diagnostic evaluations, including a kidney ultrasound. The patient was advised to follow up with her milanese knitting machine operator for a surgical consultation regarding a hysterectomy. Orders: Orders Urine Culture 04/10/25 R10.9 - Unspecified abdominal pain US renal RT 04/10/25 R10.9 - Unspecified abdominal pain Complete Blood Count Auto Diff 04/10/25 R10.9 - Unspecified abdominal pain, R53.83 - Other fatigue UA and rflx microscopic 04/10/25 R10.9 - Unspecified abdominal pain TSH reflex Free T4 04/10/25 R53.83 - Other fatigue Medications: New nitrofurantoin monohyd/m-cryst 100 mg must administer with a meal/food 100 mg PO Q12H 14 caps 0RF 7 days fluconazole take one at first sign of yeast and repeat in 3 days. 150 mg PO Q3D 2 tabs 0RF 2 doses Patient Instructions: - Follow up with your milanese knitting machine operator for the scheduled surgical consultation. - Monitor symptoms and report any worsening or new symptoms to your healthcare provider. - Maintain hydration and monitor bowel movements to prevent constipation.
[2025-04-10 08:21] VITALS: BP 136/80; PULSE 76; TEMP 36.9; O2SAT 99; BMI 27.3
--- OUTSIDE RECORDS SUMMARY | 2025-04-10 17:23 | XMS_ITS | Clinical Summary ---
Author Organization [facility] Address [address] [place] [id number] Phone Care Team Providers Care Sales Representative Printing Supplies Name Role Phone Pedro Pablo Rodriguez MD Primary Care Provider Harjeet Avalos DO Unavailable Allergies Active Allergy Reactions Criticality Noted Date Comments Amoxicillin Hives High 01/06/2016 Shellfish Anaphylaxis High 01/23/2016 Shellfish Derived 04/10/2021 Sulfa (Sulfonamide Antibiotics) Nausea And Vomiting High 01/06/2016 Severe Fevers, N/V Medications No known medications Active Problems Problem Noted Date Diagnosed Date Orthopedic aftercare 06/30/2017 Internal derangement of right knee 06/30/2017 Maltracking of right patella 06/30/2017 Disorder of patellofemoral joint 12/10/2016 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 Not on elizabeth e 11/27/2022 Are you concerned about learning? Not on file 11/27/2022 No 11/27/2022 No 11/27/2022 Digital Access Answer Date Recorded No 12/27/2022 No 12/27/2022 No 12/27/2022 Reliable internet access at home? Not on file 12/27/2022 Device with a working camera? 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 [employer] Not on file Not on file Not on file Last Filed Vital Signs Vital Sign Reading Time Taken Comments Blood Pressure 130/77 12/24/2020 11:15 AM EDT Pulse 66 12/24/2020 11:15 AM EDT Temperature 36.7 C (98.1 F) 12/24/2020 11:15 AM EDT Respiratory Rate 20 12/24/2020 10:15 AM EDT Oxygen Saturation 98% 12/24/2020 11:15 AM EDT Inhaled Oxygen Concentration - - Weight 60.6 kg (133 lb 8 oz) 06/13/2024 11:26 AM EST Height 152.4 cm (5') 06/13/2024 11:26 AM EST Body Mass Index 26.07 06/13/2024 11:26 AM EST Plan of Treatment Health Maintenance Due Date Last Done Comments Adult Td,Tdap Booster 1978 LIPID PANEL 1978 DEPRESSION SCREENING 1990 HEPATITIS C SCREENING 1996 HIV ONE-TIME SCREENING (18-65 YEARS) 1996 PAP SMEAR 1999 MAMMOGRAM 2018 SCREENING FOR DIABETES 12/12/2019 12/11/2016 COLOGUARD 2023 COLONOSCOPY 2023 COLORECTAL CANCER SCREENING 2023 FIT TEST 2023 FOBT 2023 SIGMOIDOSCOPY 2023 VIRTUAL COLONOSCOPY 2023 COVID-19 VACCINE ( season) 2024 05/21/2022, 06/23/2021, 11/16/2020, Additional history exists INFLUENZA VACCINE (#1) 2025 4, 05/21/2023, 08/18/2020 SMOKING STATUS SCREENING (Once After 26 Yrs) Completed 11/27/2021 HEPATITIS A VACCINES Aged Out No long er eligible based on patient's age to complete this topic HIB VACCINES Aged Out No longer eligi ble based on patient's age to complete this topic MENINGOCOCCAL VACCINES (ACWY) Aged Out No longer eligible based on patient's age to complete this topic MENINGOCOCCAL VACCINES (B) Aged Out N o longer eligible based on patient's age to complete this topic PNEUMOCOCCAL VACCINES (0-49 years) Aged Out No longer eligible based on patient's age to complete this topic Medical Devices Implanted Type Area Pharmacy Retail Support Specialist Device Identifier Shelf Expiration Date Model / Serial / Lot [place] Dbm Putty 10cc - [id number] Implanted:Qty: 1 on 12/10/2016 by Sarkis Garcia MD at [facility] [employer] 07/07/2019 [id number] / [id number] / Screw Bone 3.5x38mm Cortex Self Tapping Fully Threaded Hex Head S/S Ea - [id number] Implanted:Qty: 1 on 12/10/2016 by Sarkis Garcia MD at [facility] Right: Knee SYNTHES 204.838 / / Screw Bone 3.5x50mm Cortex Self Tapping Fully Threaded Hex Head Stainless Steel Ea - [id number] Implanted:Qty: 1 on 12/10/2016 by Sarkis Garcia MD at [facility] Right: Knee SYNTHES 204.850 / / Nezperce Suture 19.1x4.75mm Arthroscopy Swivelock Biocomposite Vented Closed Eyelet Pk/5ea - [id number] Implanted:Qty: 1 on 12/24/2020 by Neisha Camacho MD at [facility] at [facility] Right: Acromial Process ARTHREX [id number] 09/29/2024 [id number] CC / / [id number] Breast Implants Description:Bilateral breast implants - silicone Matrix Autologous Chondrocyte Implant - [id number] Implanted:Qty: 1 on 12/10/2016 by Sarkis Garcia MD at [facility] Right: Knee [place] 12/13/2016 ALESSANDRO / / [id number] White/Black #2 Tigertailwhite /Green/Black Order In Muliples Of 5 - [id number] Implanted:Qty: 1 on 12/24/2020 by Neisha Camacho MD at [facility] at [facility] Right: Acromial Process ARTHREX [id number] 04/01/2025 AR-3651T / / [id number] [place] [address] [place] [address] [place] [address] [place] [address] [facility] [place] [place] [address] [place] [address] [facility] Advance Directives For more information, please contact: [phone] (9AM - 5PM [place], Wednesday-Wednesday) Documents on File Type Date Recorded Patient Technical Support Associate Expl anation Healthcare Proxy 12/10/2016 7:28 AM * Full Code (Presumed) (Latest Code Status on File) Date Activated Date Inactivated Comments 03/19/2017 10:16 AM 03/19/2017 5:53 PM * Full Code (Presumed) Date Activated Date Inactivated Comments 12/10/2016 2:50 PM 12/11/2016 3:05 PM * Full Code (Presumed) Date Activated Date Inactivated Comments 12/10/2016 6:07 AM 12/10/2016 2:50 PM Healthcare Agents on File Name Relationship Healthcare Agent Relationshi p Communication Elias Sargent Life Partner .Primary Health Care Agent (Proxy form on file) Care Teams Sales Representative Printing Supplies Relationship Specialty Start Date End Date Pedro Pablo Rodriguez MD [address] [place] [address] [place] [address] PCP - General Internal Medicine 11/18/15 Harjeet Avalos DO [address] [place] [address] Orthopedics & Sports Medicine, [facility] [place] [address] [email or web address] Historical LMR Provider 05/20/17 Additional Source Comments The information contained in this document represents components of the legal health record. It is not the complete legal health record.[facility]
--- OUTSIDE RECORDS SUMMARY | 2025-04-10 17:23 | XMS_ITS | Encounter Summary ---
Author Organization [facility] Address [address] [facility] [address] [facility] [address] [place] [id number] Phone Care Team Providers Care Bobtailer Name Role Phone Pedro Pablo Rodriguez MD Primary Care Provider Harjeet Avalos DO Unavailable [phone] Pedro Pablo Rodriguez MD Unavailable [phone] Roxi Espinal MD Unavailable [phone] Encounter Details Date Type Department Care Team (Late st Contact Info) Description 12/10/2016 Procedure Pass [facility] [address] [place] [address] Social History Tobacco Use Types Packs/Day Years Used Date Smoking Tobacco: Never Smokeless Tobacco: Never Alcohol Use Standard Drinks/Week Comments No 0 (1 standard drink = 0.6 oz pur e alcohol) Comments Unknown Sex and Gender Information Value Date Recorded Sex Assigned at Female 08/09/2017 9:36 AM EST Legal Sex Female 1:55 PM EDT Gender Identity Female 08/09/2017 9:36 AM EST Sexual Orientation Straight 08/09/2017 9: 36 AM EST Occupation Industry Job Start Date Job End Date 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[employer] Not on file Not on file Not on file documented as of this encounter Plan of Treatment Not on file documented as of this encounter Visit Diagnoses Not on filedocumented in this encounter Care Teams Bobtailer Relationship Specialty Start Date End Date Pedro Pablo Rodriguez MD [address] [place] [address] [place] [address] PCP - General Internal Medicine 11/18/15 Harjeet Avalos DO [address] [place] [address] Orthopedics [facility], [place] [address] Historical LMR Provider 05/20/17 Pedro Pablo Rodriguez MD [address] [place] [address] [place] [address] Historical LMR Provider 05/20/17 2 Roxi Espinal MD [address] [place] [address] Orthopedics [facility], [place], [place] [id number] Historical LMR Provider 05/20/17 documented as of this encounter Additional Source Comments The information contained in this document represents components of the legal health record. It is not the complete legal health record.[facility]
--- OUTSIDE RECORDS SUMMARY | 2025-04-10 17:23 | XMS_ITS | Encounter Summary ---
Author Organization [facility] Address [address] [place] [address] Phone Care Team Providers Care Varnishing Machine Operator Name Role Phone Pedro Pablo Rodriguez MD Primary Care Provider Harjeet Avalos DO Unavailable [phone] Pedro Pablo Rodriguez MD Unavailable [phone] Roxi Espinal MD Unavailable [phone] Reason for Referral * MRI/CAT Scan - Closed Specialty Diagnoses / Procedures Referred By Ryan mckeon Referred To Contact Radiology Diagnoses Pain Procedures MRI Knee (Right) Sarkis Garcia MD Phone: tel: [email or web address] Referral ID Status Reason Start Date Expiration Date Visits Re quested Visits Authorized [id number] Closed 09/16/2018 10/16/2018 2 1 Encounter Details Date Type Department Care Team (Late st Contact Info) Description 09/05/2018 Ancillary Orders [facility] Orthopedics - [place] [address] [facility] 1st [place] [address] Sarkis Garcia MD [address] [place] [id number] [email or web address] Pain Social History Tobacco Use Types Packs/Day Years [...] Job Start Date Job End Date 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 croix patellar cartilage. 2. Decreased scarring in Hoffa's fat pad status post synovectomy and contracture release. ATTESTATION: Sushil Snow, as teaching physician have reviewed the images, if any, for this patient's exam, and if necessary, have edited the report originally created by Cinthya Hartmann. Narrative 09/16/2018 11:46 AM EST Reason for exam (per EHR order): mri rt knee without contrast . pain in rt knee ;<N/A> NO INDICATION APPLIES (USE FREE TEXT BELOW) Additional clinical information obtained from the EHR: 38-year-old woman who had recurrent patellofemoral subluxation, status post right patellar autologous chondrocyte implantation and tibial tubercle osteotomy on 12/10/2016, with scar tissue subsequently status post arthroscopic synovectomy and contracture release of the right knee on 03/19/2017. November 2016, per operative note: Right knee ALESSANDRO (matrix autologous chondrocyte implant), patella to defect, 20 mm wide x 8 mm long inferior patellar pole (overall patella 35 mm wide 25 mm long) with tibial tubercle anteromedialization, 10 mm medial, 10 mm anterior, lateral subvastus release and VMO quadriceps plasty. TECHNIQUE: MRI of the right knee was performed on a 1.5 Juliet magnet, without intravenous contrast. COMPARISON: MRI right knee 10/14/2017. FINDINGS: Menisci: - Medial meniscus: No medial meniscal tear. - Lateral meniscus: No lateral meniscal tear. Ligaments: The ACL, PCL, MCL and LCL complex are intact. Tendons: The extensor mechanism and popliteus tendon are intact. There is unchanged thickening of the distal patellar tendon, likely postsurgical. Bone: There are susceptibility artifacts from tibial tubercle osteotomy. Otherwise, the bone marrow signal is preserved. No fracture. ACI Site: The ACI site in the inferior pole of the patella, predominantly involving the lateral facet extending to the median ridge, measures 16 mm transverse x 13 mm anteroposterior, is covered by heterogeneous repair tissue congruent with the st. croix patellar cartilage. No hypertrophy or delamination. There is irregularity in the underlying st. croix bone in the lateral patella with small marginal osteophytes, similar to prior. [place] Cartilage: - Patellofemoral: The st. croix trochlear cartilage is intact. - Medial Tibiofemoral: Medial femoral condyle and medial tibial plateau cartilage is intact. - Lateral Tibiofemoral: Lateral femoral condyle and lateral tibial plateau cartilage is intact. Miscellaneous: No joint effusion. There is decreased scarring in Hoffa's fat pad. Procedure Note Sushil Lazo MD - 09/16/2018 Reason for exam (per EHR order): mri rt knee without contrast . pain in rt knee ;<N/A> NO INDICATION APPLIES (USE FREE TEXT BELOW) Additional clinical information obtained from the EHR: 38-year-old woman who had recurrent patellofemoral subluxation, status post right patellar autologous chondrocyte implantation and tibial tubercle osteotomy on 12/10/2016, with scar tissue subsequently status post arthroscopic synovectomy and contracture release of the right knee on 03/19/2017. November 2016, per operative note: Right knee ALESSANDRO (matrix autologous chondrocyte implant), patella to defect, 20 mm wide x 8 mm long inferior patellar pole (overall patella 35 mm wide 25 mm long) with tibial tubercle anteromedialization, 10 mm medial, 10 mm anterior, lateral subvastus release and VMO quadriceps plasty. TECHNIQUE: MRI of the right knee was performed on a 1.5 Juliet magnet, without intravenous contrast. COMPARISON: MRI right knee 10/14/2017. FINDINGS: Menisci: - Medial meniscus: No medial meniscal tear. - Lateral meniscus: No lateral meniscal tear. Ligaments: The ACL, PCL, MCL and LCL complex are intact. Tendons: The extensor mechanism and popliteus tendon are intact. There is unchanged thickening of the distal patellar tendon, likely postsurgical. Bone: There are susceptibility artifacts from tibial tubercle osteotomy. Otherwise, the bone marrow signal is preserved. No fracture. ACI Site: The ACI site in the inferior pole of the patella, predominantly involving the lateral facet extending to the median ridge, measures 16 mm transverse x 13 mm anteroposterior, is covered by heterogeneous repair tissue congruent with the st. croix patellar cartilage. No hypertrophy or delamination. There is irregularity in the underlying st. croix bone in the lateral patella with small marginal osteophytes, similar to prior. [place] Cartilage: - Patellofemoral: The st. croix trochlear cartilage is intact. - Medial Tibiofemoral: Medial femoral condyle and medial tibial plateau cartilage is intact. - Lateral Tibiofemoral: Lateral femoral condyle and lateral tibial plateau cartilage is intact. Miscellaneous: No joint effusion. There is decreased scarring in Hoffa's fat pad. IMPRESSION: 1. 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 croix patellar cartilage. 2. Decreased scarring in Hoffa's fat pad status post synovectomy and contracture release. ATTESTATION: Sushil Snow, as teaching physician have reviewed the images, if any, for this patient's exam, and if necessary, have edited the report originally created by Cinthya Hartmann. Sarkis Garcia MD IM MR EXTREMITY Final Result documented in this encounter Visit Diagnoses Diagnosis Pain Generalized pain Pain Generalized pain documented in this encounter Care Teams Varnishing Machine Operator Relationship Specialty Start Date End Date Pedro Pablo Rodriguez MD [address] [place] [address] [place] [address] PCP - General Internal Medicine 11/18/15 Harjeet Avalos DO [address] [place] [address] [facility] [place] [address] Historical LMR Provider 05/20/17 Pedro Pablo Rodriguez MD [address] [place] [address] [place] [address] Historical LMR Provider 05/20/17 2 Roxi Espinal MD [address] [place] [address] [facility], [place] [address] [email or web address] Historical LMR Provider 05/20/17 documented as of this encounter Additional Source Comments The information contained in this document represents components of the legal health record. It is not the complete legal health record.[facility]
--- OUTSIDE RECORDS SUMMARY | 2025-04-10 17:23 | XMS_ITS | Encounter Summary ---
Author Organization [facility] Address [address] [facility] [address] [place] [address] Phone Care Team Providers Care Manager Division Name Role Phone Pedro Pablo Rodriguez MD Primary Care Provider Harjeet Avalos DO Unavailable [phone] Pedro Pablo Rodriguez MD Unavailable [phone] Roxi Espinal MD Unavailable [phone] Encounter Details Date Type Department Care Team (Late st Contact Info) Description 09/05/2018 Procedure Pass [facility] [address] [id number] Social History Tobacco Use Types Packs/Day Years [...] Job Start Date Job End Date 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 on file Not on file Not on file documented as of this encounter Plan of Treatment Not on file documented as of this encounter Visit Diagnoses Not on filedocumented in this encounter Care Teams Manager Division Relationship Specialty Start Date End Date Pedro Pablo Rodriguez MD [address] [place] [address] [place] [address] PCP - General Internal Medicine 11/18/15 Harjeet Avalos DO 4 [facility], [place] [address] Historical LMR Provider 05/20/17 Pedro Pablo Rodriguez MD [address] [place] [address] [place] [address] Historical LMR Provider 05/20/17 2 Roxi Espinal MD [address] [place] [address] [facility], [place] [address] Historical LMR Provider 05/20/17 documented as of this encounter Additional Source Comments The information contained in this document represents components of the legal health record. It is not the complete legal health record.[facility]
--- OUTSIDE RECORDS SUMMARY | 2025-04-10 17:23 | XMS_ITS | Encounter Summary ---
Author Organization 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 on file Not on file Not on file documented as of this encounter Last Filed Vital Signs Vital Sign Reading Time Taken Comments Blood Pressure - - Pulse - - Temperature - - Respiratory Rate - - Oxygen Saturation - - Inhaled Oxygen Concentration - - Weight 63 kg (139 lb) 09/06/2020 4:52 PM EST Height 147.3 cm (4' 10 ) 09/06/2020 4:52 PM EST Body Mass Index 29.05 09/06/2020 4:52 PM EST documented in this encounter Plan of Treatment Not on file documented as of this encounter Visit Diagnoses Not on filedocumented in this encounter Care Teams Airport Driver Relationship Specialty Start Date End Date Pedro Pablo Rodriguez MD [address] [place] [address] [place] [address] PCP - General Internal Medicine 11/18/15 Harjeet Avalos DO [address] [place] [address] Orthopedics Sports [facility], [place] [address] [email or web address] Historical LMR Provider 05/20/17 Pedro Pablo Rodriguez MD [address] [place] [address] [place] [address] Historical LMR Provider 05/20/17 2 Roxi Espinal MD [address] [place] [address] Orthopedics Sports [facility], [place], [place] [id number] Historical LMR Provider 05/20/17 documented as of this encounter Additional Source Comments The information contained in this document represents components of the legal health record. It is not the complete legal health record.[facility]
--- OUTSIDE RECORDS SUMMARY | 2025-04-10 17:23 | XMS_ITS | Encounter Summary ---
Author Organization [facility] Address [address] [facility] [address] [place] [address] Phone Care Team Providers Care Schedule Maker Name Role Phone Pedro Pablo Rodriguez MD Primary Care Provider Harjeet Avalos DO Unavailable [phone] Pedro Pablo Rodriguez MD Unavailable [phone] Roxi Espinal MD Unavailable [phone] Encounter Details Date Type Department Care Team (Late st Contact Info) Description 12/24/2020 Procedure Pass [facility] @ [address] [phone] Social History Tobacco Use Types Packs/Day Years [...] Job Start Date Job End Date 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[employer] Not on file Not on file Not on file documented as of this encounter Plan of Treatment Not on file documented as of this encounter Visit Diagnoses Not on filedocumented in this encounter Care Teams Schedule Maker Relationship Specialty Start Date End Date Pedro Pablo Rodriguez MD [address] [place] [address] [place] [address] PCP - General Internal Medicine 11/18/15 Harjeet Avalos DO [address] [place] [address] Orthopedics Sports [facility], [place] [address] Historical LMR Provider 05/20/17 Pedro Pablo Rodriguez MD [address] [place] [address] [place] [address] Historical LMR Provider 05/20/17 2 Roxi Espinal MD [address] [place] [address] Orthopedics Sports [facility], [place], [place] [id number] Historical LMR Provider 05/20/17 documented as of this encounter Additional Source Comments The information contained in this document represents components of the legal health record. It is not the complete legal health record.[facility]
--- OUTSIDE RECORDS SUMMARY | 2025-04-10 17:23 | XMS_ITS | Encounter Summary ---
Author Organization [facility] Address [address] [facility] [address] [place] [address] Phone Care Team Providers Care Riddler Operator Name Role Phone Pedro Pablo Rodriguez MD Primary Care Provider Harjeet Avalos DO Unavailable [phone] Pedro Pablo Rodriguez MD Unavailable [phone] Roxi Espinal MD Unavailable [phone] Encounter Details Date Type Department Care Team (Late st Contact Info) Description 03/19/2017 Procedure Pass [facility] @ [address] [phone] Social History Tobacco Use Types Packs/Day Years [...] Job Start Date Job End Date 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 on file Not on file Not on file documented as of this encounter Plan of Treatment Not on file documented as of this encounter Visit Diagnoses Not on filedocumented in this encounter Care Teams Riddler Operator Relationship Specialty Start Date End Date Pedro Pablo Rodriguez MD [address] [place] [address] [place] [address] PCP - General Internal Medicine 11/18/15 Harjeet Avalos DO [address] [place] [address] Orthopedics Sports [facility], [place] [address] Historical LMR Provider 05/20/17 Pedro Pablo Rodriguez MD [address] [place] [address] [place] [address] Historical LMR Provider 05/20/17 2 Roxi Espinal MD [address] [place] [address] Orthopedics Sports [facility], [place], [place] [id number] Historical LMR Provider 05/20/17 documented as of this encounter Additional Source Comments The information contained in this document represents components of the legal health record. It is not the complete legal health record.[facility]
--- OUTSIDE RECORDS SUMMARY | 2025-04-10 17:23 | XMS_ITS | Encounter Summary ---
Author Organization [facility] Address [address] [facility] [address] [place] [address] Phone Care Team Providers Care Adult Daycare Coordinator Name Role Phone Pedro Pablo Rodriguez MD Primary Care Provider Harjeet Avalos DO Unavailable [phone] Pedro Pablo Rodriguez MD Unavailable [phone] Roxi Espinal MD Unavailable [phone] Encounter Details Date Type Department Care Team (Late st Contact Info) Description 06/30/2017 Procedure Pass [facility] [address] [phone] Social History Tobacco Use Types Packs/Day Years [...] Job Start Date Job End Date 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 on file Not on file Not on file documented as of this encounter Plan of Treatment Not on file documented as of this encounter Visit Diagnoses Not on filedocumented in this encounter Care Teams Adult Daycare Coordinator Relationship Specialty Start Date End Date Pedro Pablo Rodriguez MD [address] [place] [address] [place] [address] PCP - General Internal Medicine 11/18/15 Harjeet Avalos DO 4 [facility] Orthopedics Sports [facility], [place] [address] Historical LMR Provider 05/20/17 Pedro Pablo Rodriguez MD [address] [place] [address] [place] [address] Historical LMR Provider 05/20/17 2 Roxi Espinal MD [address] [place] [address] Orthopedics Sports [facility], [place] [address] Historical LMR Provider 05/20/17 documented as of this encounter Additional Source Comments The information contained in this document represents components of the legal health record. It is not the complete legal health record.[facility]
== END 2025-04-10 16:04 | disposition home or self-care (01) ==
LOC: HO.HMCHD 14:56
PROVIDERS: PCP Internal Medicine; Visit Provider Physician Assistant Medical
DX: R10.31 Right lower quadrant pain (principal); R10.9 Unspecified abdominal pain; R53.83 Other fatigue; R55 Syncope and collapse; N92.6 Irregular menstruation, unspecified

== ENCOUNTER 2025-04-12 20:14 | Emergency (ER) | payer BC, SELFPAY ==
[2025-04-12 20:17] VITALS: BP 144/92; PULSE 88; RESP 16; TEMP 36.6; O2SAT 97; BMI 28.4
[2025-04-12 20:48] LABS: MANUAL DIFF FLAG NO
[2025-04-12 20:50] LABS: Hematocrit 36.9 % (37.0-47.0); Hemoglobin 12.5 g/dl (12.0-16.0); Imm Gran Abs Auto 0.04 X10*3/uL (0.00-0.03); Imm Gran Pct Auto 0.4 % (0.0-0.4); Lymphocytes Absolute Auto 1.1 X10*3/uL (1.2-4.9); Mean Corpuscular HGB Conc 33.9 g/dl (31.0-35.0); Mean Corpuscular Hemoglobin 27.2 pg (27.0-33.0); Mean Corpuscular Volume 80.2 fL (80.0-98.0); NRBC Abs Auto 0.000 X10*3/uL (0.0-0.012); NRBC Pct Auto 0.0 /100WBC (0.0-0.2); Platelet Count 320 X10*3/uL (160-400); Red Blood Count 4.60 X10*6/uL (4.20-5.50); White Blood Count 10.4 X10*3/uL (4.8-10.8)
[2025-04-12 21:01] LABS: Anion Gap 11 (12-20); Blood Urea Nitrogen 11 mg/dL (9-16); Calcium 9.1 mg/dL (8.4-10.2); Carbon Dioxide 26 mmol/L (22-29); Chloride 104 mmol/L (96-108); Creatinine Clr Calc Pharmacy 70.8; Estimated Glomerular Filt Rate > 60; Potassium 4.1 mmol/L (3.3-5.1); Sodium 137 mmol/L (135-145)
[2025-04-12 22:52] LABS: Appearance Urine Clear; Glucose Urine UA Negative (Negative); PH 7.5 (5.0-9.0); Specific Gravity - Urine <= 1.005 (1.005-1.025); UMIC TRIGGER UACC YES
--- NOTE | 2025-04-12 23:06 | ED.FEMALEGU ---
HPI - Female Genitourinary General Chief complaint: Urogenital-Female Stated complaint: right lower extremity pain Time Seen by Provider: 04/12/25 23:06 Source: patient Mode of arrival: ambulatory Limitations: no limitations History of Present Illness ED Provider: Spring Armenta PA-C HPI Narrative: Patient seeks medical attention today the emergency department for evaluation of abnormal vaginal bleeding. Patient states that she had such severe abdominal pain this past Wednesday that she felt like she was going to pass out and laid herself on the ground and then lost consciousness for what her reports as the proximally 30 seconds. He called 911 and she was brought to [facility] Emergency Department where she had labs and imaging done including transvaginal ultrasound and a CT of the abdomen and pelvis. Patient was diagnosed with a large uterine fibroid and advised to follow up outpatient with General surgery. Patient states that she was able to do this and did follow up with her PCP this past week they have plans to do a potential hysterectomy but she has not met with the general surgeon from gynecology quite yet. She reports not having any significant bleeding but does have some spotting. She reports no painful urination urgency or frequency. Her PCP told her that there was some bacteria in her urine when she had the follow up so she has been placed on Macrobid she is not endorsing any flank pain today but she continues to have suprapubic pain which was the same as on Wednesday when she went to [facility]. She denies feeling nauseous and has no trouble with passing bowel. No fevers no chills no respiratory symptoms. She reports her backache is a little bit and it is worse with positional changes however she has been lying down for the last 3 days. She denies any saddle anesthesia or change/loss in her bladder or bowel function and no weakness of her extremities. Patient has TXA to use just in case but has not needed to use it she also has a NuvaRing in an IUD she does not feel lightheaded or dizzy she is able tolerate p.o. fluids and void regularly she was not sure if she should wait to see the general surgeon or not so decided to seek medical attention here today. PCP ordered outpatient U/S to recheck in interim. I have also shared with the patient that I have access to retrieve [facility] records and I was more than willing to go over both her transvaginal ultrasound and her CT results with her but she states that she has access to these on her portal and her IUD was visualized asthma place she does not have concerns for this and did not want to go over her results MD elicited complaint: pelvic pain Related Data Home Medications ?Medication ?Instructions ?Recorded ?Confirmed estradiol 0.05 mg/24 hr semiweekly 1 patch transdermal 2XW 04/10/25 04/16/25 transdermal patch norethindrone acetate 5 mg tablet 5 mg PO BID 04/10/25 04/16/25 Previous Rx's ?Medication ?Instructions ?Recorded fluconazole 150 mg tablet 150 mg PO Q3D 2 doses #2 tabs 04/10/25 nitrofurantoin 100 mg PO Q12H 7 days #14 caps 04/10/25 monohydrate/macrocrystals 100 mg capsule Allergies Allergy/AdvReac Type Severity Reaction Status Date / Time amoxicillin Allergy Hives Verified 04/10/25 15:03 shellfish derived (shellfish) Allergy Unknown Verified 04/10/25 15:03 Sulfa (Sulfonamide Allergy Vomiting Verified 04/12/25 20:19 Antibiotics) Review of Systems Review of Systems: Yes all other systems are reviewed and are negative PMFSH Past Medical History Attestation statement: The following information was validated with the patient. Source: old records reviewed and nursing notes reviewed Medical History (Updated 04/16/25 @ 10:59 by CLAIRE Valencia) Fatigue Flank pain, acute Abdominal pain Family History Family History (Updated 04/10/25 @ 15:07 by Katelin Ramirez MA) Mother No problems noted. Father No problems noted. Social History Social History Housing: House Patient Tobacco Use Status: Never used Tobacco e-Cigarette/Vaping Use: Never Used Advance Directives: No Advance Directives Information Provided: Yes service: No Current occupational status: employed Cognitive needs: No Hearing needs: No Vision needs: Yes (rx glasses) Physical Exam Exam: Exam: General: Appears in no acute distress, appears well nourished body habitus is overweight, appears stated age. No septic or ill-appearing. Vitals reviewed normal, PMH/Social and Surgical hx reviewed including allergies and current medications. - reviewed for prior visits here - Head: Normocephalic, no obvious trauma or skin lesions noted. Eyes: EOMI, conjunctiva and sclera clear visible vessels not pale ENMT: moist oral mucosa Neck: trachea midline Cardiovascular: peripheral perfusion normal, Regular heart rate regular rhythm Respiratory: no respiratory distress Abdomen: nondistended, nontender abdomen no CVA tenderness no flank pain no midline tenderness step-offs or deformities of entire spine Extremities: warm and moving without difficulty unless otherwise detailed in physical exam if applicable. Psych: Cooperative Neuro: Alert and oriented. Vital Signs: Vital Signs: Last Vital Signs Temp 98.6 F 04/13/25 00:15 Pulse 80 04/13/25 00:15 Resp 16 04/13/25 00:15 BP 123/73 04/13/25 00:15 Pulse Ox 97 04/13/25 00:15 O2 Del Method Room Air 04/13/25 00:15 BMI result Body Mass Index 28.4 Medical Decision Making Medical Decision Making [facility] Narrative: Well appearing 44 y/o F with AUB. H and P as above. Upon arrival to ED, she is afebrile and well appearing with normal vitals. She has imaging few days ago at [facility] ED dx'd with uterine fibroid. Given her presentation and nontender abdomen, I deferred CT imaging. ABd labs and UA ordered. Less likely for acute intraabdominal process here. Not sick appearing. Differential Diagnosis Differential Diagnoses: The differential diagnosis associated with the presentation includes Abdominal pain Abnormal uterine bleeding UTI Musculoskeletal pain Admission/Observation Consideration of admission/observation: Escalation of care including admission/observation considered Patient would have been admitted to the hospital had her work up had any findings where hospital admission was appropriate and her clinical presentation warranted hospital admission. Lab Data [facility] Lab Attestation statement: I reviewed the patient's lab results. No significant anemia or leukocytosis no TALA 04/12/25 20:43 04/12/25 20:43 Labs: Lab Results 04/12/25 04/12/25 Range/Units 20:43 22:35 WBC 10.4 (4.8-10.8) X10*3/uL RBC 4.60 (4.20-5.50) X10*6/uL Hgb 12.5 (12.0-16.0) g/dl Hct 36.9 L (37.0-47.0) % MCV 80.2 (80.0-98.0) fL MCH 27.2 (27.0-33.0) pg MCHC 33.9 (31.0-35.0) g/dl RDW 14.2 (11.0-16.0) % Plt Count 320 (160-400) X10*3/uL MPV 10.4 (9.4-12.3) fL Immature Gran % (Auto) 0.4 (0.0-0.4) % Neut % (Auto) 75.5 H (45-73) % Lymph % (Auto) 10.1 L (20-40) % Doniphan % (Auto) 6.9 (2-11) % Eos % (Auto) 6.7 H (0-4) % Baso % (Auto) 0.4 (0-2) % Lymph # (Auto) 1.1 L (1.2-4.9) X10*3/uL Don[place]han # (Auto) 0.7 (0.1-1.2) X10*3/uL Eos # (Auto) 0.7 H (0.0-0.4) X10*3/uL Baso # (Auto) 0.0 (0.0-0.2) X10*3/uL Abs Immat Gran (auto) 0.04 H (0.00-0.03) X10*3/uL Absolute Neuts (auto) 7.8 (2.0-8.3) x10*3/uL Absolute Nucleated RBC 0.000 (0.0-0.012) X10*3/uL Nucleated RBC % (auto) 0.0 (0.0-0.2) /100WBC Sodium 137 (135-145) mmol/L Potassium 4.1 (3.3-5.1) mmol/L Chloride 104 (96-108) mmol/L Carbon Dioxide 26 (22-29) mmol/L Anion Gap 11 L (12-20) BUN 11 (9-16) mg/dL Creatinine 0.77 (0.5-1.4) mg/dL Estim Creat Clear Calc 70.8 Estimated GFR > 60 Random Glucose 133 H (60-115) mg/dL Calcium 9.1 (8.4-10.2) mg/dL Urine Color Yellow Urine Appearance Clear Urine pH 7.5 (5.0-9.0) Ur Specific What Cheer <= 1.005 (1.005-1.025) Urine Protein Negative (Neg-Trace) mg/dL Urine Glucose (UA) Negative (Negative) mg/dL Urine Ketones Negative (Negative) mg/dL Urine Blood Moderate (2+) H (Negative) Urine Nitrite Negative (Negative) Ur Leukocyte Esterase Trace H (Negative) Urine RBC 0-2 (0-2) /HPF Urine WBC 0-5 (0-5) /HPF Ur Squamous Epith Cells 0-2 (0-2) /HPF Urine Bacteria Trace (None Seen) Hyaline Casts 0-2 (0-2) /LPF Radiology Impression Radiologist Impression: Rev'd ED records from [facility] and went over with patient Independent Historian Clinical information obtained from an independent historian. History obtained from or confirmed by: Spouse Tests considered The following testing was considered but not selected: Consider CT of the abdomen and pelvis for potential concern of kidney stone however patient has a nontender abdomen and nontender flank and no colicky pain and just had a CT scan 6 days ago and patient states that her symptoms are unchanged she also had a transvaginal ultrasound 6 days ago symptoms are also unchanged and not as severe therefore we will defer to avoid excess radiation. Chronic Conditions Patient?s care impacted by: Other (Uterine fibroid) Discharge Plan Discharge Clinical Impression: Fibroid, uterine Abdominal pain Qualifiers: Abdominal location: right lower quadrant Qualified Code(s): R10.31 - Right lower quadrant pain Patient Disposition: Home, Self-Care Instructions: Uterine Fibroids (ED) Additional Instructions: You had a CT scan of the abdomen and pelvis less than a week ago and were diagnosed with a large uterine fibroid. This will cause pelvic cramping and abnormal uterine bleeding unfortunately this will be an issue until it is addressed to already have a general surgery consult with based a gynecology please keep this appointment. We discussed returning to the emergency department should you experience any different symptoms are bleeding through a pad or tampon an hour. Your already being treated for UTI and are currently not endorsing any urinary symptoms such as urgency frequency or painful urination. Your blood work did not show evidence of obvious anemia indicated significant blood loss. There is no elevation of her white blood cells either which makes any infection unlikely. Continue your antibiotic. Your have no tenderness over your kidneys. Your presentation is not consistent with a kidney stone. We did discuss the utilization of repeating a CT however in this setting of not having concern for a kidney stone and just recently having a CT we have decided to defer this please touch base with your bottle house quality control technician. Prescriptions: No Action estradiol 0.05 mg/24 hr patch semiweekly 1 patch transdermal 2XW norethindrone acetate 5 mg tablet 5 mg PO BID fluconazole 150 mg tablet 150 mg PO Q3D Qty: 2 0RF Rx Instructions: take one at first sign of yeast and repeat in 3 days. nitrofurantoin monohyd/m-cryst 100 mg capsule 100 mg PO Q12H 7 Days Qty: 14 0RF Rx Instructions: must administer with a meal/food Referrals: [facility] [employer], [place] [Outside] Referral Note: uterine fibroid Stand Alone Forms: Work/School Release Interventions: ED Discharge Assessment Last Done: 04/13/25 00:15 Discharge Date/Time: 04/13/25 00:22 Print Language: Gabonese
--- OUTSIDE RECORDS SUMMARY | 2025-04-12 23:31 | XMS_ITS | Encounter Summary ---
Author Organization [facility] Address [address] [facility] [address] [place] [address] Phone Care Team Providers Care Kitchen Runner Name Role Phone Pedro Pablo Rodriguez MD Primary Care Provider Harjeet Avalos DO Unavailable [phone] Pedro Pablo Rodriguez MD Unavailable [phone] Roxi Espinal MD Unavailable [phone] Encounter Details Date Type Department Care Team (Late st Contact Info) Description 06/30/2017 Procedure Pass [facility] [address] [id number] Social History Tobacco Use Types Packs/Day Years [...] Date Job End Date 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 Orthopedics [facility], [place] [address] Historical LMR Provider 05/20/17 Pedro Pablo Rodriguez MD [address] [place] [address] [place] [address] Historical LMR Provider 05/20/17 2 Roxi Espinal MD [address] [place] [address] Orthopedics [facility], [place] [address] Historical LMR Provider 05/20/17 documented as of this encounter Additional Source Comments The information contained in this document represents components of the legal health record. It is not the complete legal health record.[facility]
--- OUTSIDE RECORDS SUMMARY | 2025-04-12 23:31 | XMS_ITS | Encounter Summary ---
Author Organization [facility] Address [address] [facility] [address] [place] [address] Phone Care Team Providers Care Gamma Operator Name Role Phone Pedro Pablo Rodriguez MD Primary Care Provider Harjeet Avalos DO Unavailable [phone] Pedro Pablo Rodriguez MD Unavailable [phone] Roxi Espinal MD Unavailable [phone] Encounter Details Date Type Department Care Team (Late st Contact Info) Description 12/24/2020 Procedure Pass [facility] @ [address] [phone] Social History Tobacco Use Types Packs/Day Years [...] Job Start Date Job End Date 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, [place] [address] Historical LMR Provider 05/20/17 Pedro Pablo Rodriguez MD [address] [place] [address] [place] [address] Historical LMR Provider 05/20/17 2 Roxi Espinal MD [address] [place] [address] [facility], [place], [place] [id number] Historical LMR Provider 05/20/17 documented as of this encounter Additional Source Comments The information contained in this document represents components of the legal health record. It is not the complete legal health record.[facility]
--- OUTSIDE RECORDS SUMMARY | 2025-04-12 23:31 | XMS_ITS | Encounter Summary ---
Author Organization [facility] Address [address] [facility] [address] [place] [address] Phone Care Team Providers Care Stud Beef Cattle Farmer Name Role Phone Pedro Pablo Rodriguez MD Primary Care Provider Harjeet Avalos DO Unavailable [phone] Pedro Pablo Rodriguez MD Unavailable [phone] Roxi Espinal MD Unavailable [phone] Encounter Details Date Type Department Care Team (Late st Contact Info) Description 03/19/2017 Procedure Pass [facility] @ [address] [phone] Social History Tobacco Use Types Packs/Day Years [...] Job Start Date Job End Date 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 on file Not on file Not on file documented as of this encounter Plan of Treatment Not on file documented as of this encounter Visit Diagnoses Not on filedocumented in this encounter Care Teams Stud Beef Cattle Farmer Relationship Specialty Start Date End Date Pedro Pablo Rodriguez MD [address] [place] [address] [place] [address] PCP - General Internal Medicine 11/18/15 Harjeet Avalos DO [address] [place] [address] Orthopedics Sports [facility], [place] [address] Historical LMR Provider 05/20/17 Pedro Pablo Rodriguez MD [address] [place] [address] [place] [address] Historical LMR Provider 05/20/17 2 Roxi Espinal MD [address] [place] [address] Orthopedics [facility], [place], [place] [id number] Historical LMR Provider 05/20/17 documented as of this encounter Additional Source Comments The information contained in this document represents components of the legal health record. It is not the complete legal health record.[facility]
--- OUTSIDE RECORDS SUMMARY | 2025-04-12 23:31 | XMS_ITS | Encounter Summary ---
Author Organization [facility] Address [address] [facility] [address] [place] [address] Phone Care Team Providers Care Facilitator Name Role Phone Pedro Pablo Rodriguez MD Primary Care Provider Harjeet Avalos DO Unavailable [phone] Pedro Pablo Rodriguez MD Unavailable [phone] Roxi Espinal MD Unavailable [phone] Encounter Details Date Type Department Care Team (Late st Contact Info) Description 09/05/2020 Procedure Pass [address] [place] [address] Social History Tobacco Use Types Packs/Day Years [...] Job Start Date Job 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 Date 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 file Not on [...] on filedocumented in this encounter Care Teams Facilitator Relationship Specialty Start Date End Date Pedro Pablo Rodriguez MD [address] [place] [address] [place] [address] PCP - General Internal Medicine 11/18/15 Harjeet Avalos DO [address] [place] [address] Orthopedics Sports [facility], [place] [address] [email or web address] Historical LMR Provider 05/20/17 Pedro Pablo Rodriguez MD [address] [place] [address] [place] [address] Historical LMR Provider 05/20/17 2 Roxi Espinal MD [address] [place] [address] Orthopedics Sports [facility], [place], [place] [id number] Historical LMR Provider 05/20/17 documented as of this encounter Additional Source Comments The information contained in this document represents components of the legal health record. It is not the complete legal health record.[facility]
--- OUTSIDE RECORDS SUMMARY | 2025-04-12 23:31 | XMS_ITS | Encounter Summary ---
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 on file Not on file Not on file documented as of this encounter Plan of Treatment Not on file documented as of this encounter Visit Diagnoses Not on filedocumented in this encounter Care Teams Title Lawyer Relationship Specialty Start Date End Date Pedro Pablo Rodriguez MD [address] [place] [address] [place] [address] PCP - General Internal Medicine 11/18/15 Harjeet Avalos DO 4 [facility] Orthopedics Sports [facility], [place] [address] Historical LMR Provider 05/20/17 Pedro Pablo Rodriguez MD [address] [place] [address] [place] [address] Historical LMR Provider 05/20/17 2 Roxi Espinal MD [address] [place] [address] Orthopedics [facility], [place] [address] Historical LMR Provider 05/20/17 documented as of this encounter Additional Source Comments The information contained in this document represents components of the legal health record. It is not the complete legal health record.[facility]
--- OUTSIDE RECORDS SUMMARY | 2025-04-12 23:31 | XMS_ITS | Encounter Summary ---
Author Organization [facility] Address [address] [place] [address] [place] [address] Phone Care Team Providers Care Auto Body Estimator Name Role Phone Pedro Pablo Rodriguez MD Primary Care Provider Harjeet Avalos DO Unavailable [phone] Pedro Pablo Rodriguez MD Unavailable [phone] Roxi Espinal MD Unavailable [phone] Reason for Referral * MRI/CAT Scan - Closed Specialty Diagnoses / Procedures Referred By Ryan mckeon Referred To Contact Radiology Diagnoses Pain Procedures MRI Knee (Right) Sarkis Garcia MD Phone: tel: [email or web address] Referral ID Status Reason Start Date Expiration Date Visits Re quested Visits Authorized [id number] Closed 09/16/2018 10/16/2018 2 1 Encounter Details Date Type Department Care Team (Late st Contact Info) Description 09/05/2018 Ancillary Orders [facility] Orthopedics - [place] [address] [facility] 1st [place] [address] Sarkis Garcia MD [address] [place] [phone] [email or web address] Pain Social History Tobacco Use Types [...] Job Start Date Job End Date 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 2. Decreased scarring in Hoffa's [...] by heterogeneous repair tissue congruent with the cher-ae heights patellar cartilage. No hypertrophy or delamination. There is irregularity in the underlying cher-ae heights bone in the lateral patella with small marginal osteophytes, similar to prior. [place] Cartilage: - Patellofemoral: The cher-ae heights trochlear cartilage is intact. - Medial Tibiofemoral: [...] by heterogeneous repair tissue congruent with the cher-ae heights patellar cartilage. No hypertrophy or delamination. There is irregularity in the underlying cher-ae heights bone in the lateral patella with small marginal osteophytes, similar to prior. [place] Cartilage: - Patellofemoral: The cher-ae heights trochlear cartilage is intact. - Medial Tibiofemoral: Medial femoral condyle and medial tibial plateau cartilage is intact. - Lateral Tibiofemoral: Lateral femoral condyle and lateral tibial plateau cartilage is intact. Miscellaneous: No joint effusion. There is decreased scarring in Hoffa's fat pad. IMPRESSION: 1. 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 2. Decreased scarring in Hoffa's [...] pain documented in this encounter Care Teams Auto Body Estimator Relationship Specialty Start Date End Date Pedro Pablo Rodriguez MD [address] [place] [address] [place] [address] PCP - General Internal Medicine 11/18/15 Harjeet Avalos DO [address] [place] [address] [facility] [place] [address] Historical LMR Provider 05/20/17 Pedro Pablo Rodriguez MD [address] [place] [address] [place] [address] Historical LMR Provider 05/20/17 2 Roxi Espinal MD [address] [place] [address] [facility], [place] [address] [email or web address] Historical LMR Provider 05/20/17 documented as of this encounter Additional Source Comments The information contained in this document represents components of the legal health record. It is not the complete legal health record.[facility]
--- OUTSIDE RECORDS SUMMARY | 2025-04-12 23:31 | XMS_ITS | Encounter Summary ---
Author Organization [facility] Address [address] [facility] [address] [place] [address] Phone Care Team Providers Care Park Worker Supervisor Name Role Phone Pedro Pablo Rodriguez MD Primary Care Provider Harjeet Avalos DO Unavailable [phone] Pedro Pablo Rodriguez MD Unavailable [phone] Roxi Espinal MD Unavailable [phone] Encounter Details Date Type Department Care Team (Late st Contact Info) Description 12/10/2016 Procedure Pass [facility] Periop [address] [place] [address] Social History Tobacco Use Types Packs/Day Years [...] Job Start Date Job End Date 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 on file Not on file Not on file documented as of this encounter Plan of Treatment Not on file documented as of this encounter Visit Diagnoses Not on filedocumented in this encounter Care Teams Park Worker Supervisor Relationship Specialty Start Date End Date Pedro Pablo Rodriguez MD [address] [place] [address] [place] [address] PCP - General Internal Medicine 11/18/15 Harjeet Avalos DO [address] [place] [address] Orthopedics Sports [facility], [place] [address] Historical LMR Provider 05/20/17 Pedro Pablo Rodriguez MD [address] [place] [address] [place] [address] Historical LMR Provider 05/20/17 2 Roxi Espinal MD [address] [place] [address] Orthopedics [facility], [place], [place] [id number] Historical LMR Provider 05/20/17 documented as of this encounter Additional Source Comments The information contained in this document represents components of the legal health record. It is not the complete legal health record.[facility]
--- OUTSIDE RECORDS SUMMARY | 2025-04-12 23:31 | XMS_ITS | Clinical Summary ---
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[employer] Not on file Not on [...] this topic Medical Devices Implanted Type Area [employer] Fruit Crop Farmer Device Identifier Shelf Expiration Date Model / Serial / Lot Radha Dbm Putty 10cc - [id number] Implanted:Qty: 1 on 12/10/2016 by Sarkis Garcia MD at [facility] [employer] 07/07/2019 [id number] / [id number] / Screw Bone 3.5x38mm Cortex Self Tapping Fully Threaded Hex Head S/S Ea - [id number] Implanted:Qty: 1 on 12/10/2016 by Sarkis Garcia MD at [facility] Right: Knee SYNTHES 204.838 / / Screw Bone 3.5x50mm Cortex Self Tapping Fully Threaded Hex Head Stainless Steel Ea - [id number] Implanted:Qty: 1 on 12/10/2016 by Sarkis Garcia MD at [facility] Right: Knee SYNTHES 204.850 / / [place] Suture 19.1x4.75mm Arthroscopy Swivelock Biocomposite Vented Closed Eyelet Pk/5ea - [id number] Implanted:Qty: 1 on 12/24/2020 by Neisha Camacho MD at [facility] Right: Acromial Process ARTHREX [id number] 09/29/2024 [id number]-[id number] CC / / [id number] Breast Implants Description:Bilateral breast implants - silicone Matrix Autologous Chondrocyte Implant - [id number] Implanted:Qty: 1 on 12/10/2016 by Sarkis Garcia MD at [facility] Right: Knee TxVia 12/13/2016 ALESSANDRO / / [id number] [place] [address] Morse White/Black #2 Tigertailwhite /Green/Black Order In Muliples Of 5 - [id number] Implanted:Qty: 1 on 12/24/2020 by Neisha Camacho MD at [facility] at [facility] Right: Acromial Process ARTHREX [id number] 04/01/2025 AR-3651T / / [id number] [place] [address] [place] [address] [place] [address] [place] [address] [facility] [place] [place] [address] [place] [address] [facility] Advance Directives For more information, please contact: [phone] (9AM - 5PM [place], Wednesday-Wednesday) Documents on File Type Date Recorded 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 [address] [email or web address] Historical LMR Provider 05/20/17 Additional Source Comments The information contained in this document represents components of the legal health record. It is not the complete legal health record.[facility]
[2025-04-12 23:55] VITALS: BP 123/73; PULSE 80; RESP 16; TEMP 37; O2SAT 97
[2025-04-13 00:15] VITALS: BP 123/73; PULSE 80; RESP 16; TEMP 37; O2SAT 97
== END 2025-04-13 00:22 | disposition home or self-care (01) ==
PROVIDERS: Emergency Provider Emergency Medicine; PCP Internal Medicine
DX: N93.9 Abnormal uterine and vaginal bleeding, unspecified (principal); D25.9 Leiomyoma of uterus, unspecified; R10.31 Right lower quadrant pain; E66.3 Overweight; Z68.28 Body mass index [BMI] 28.0-28.9, adult
CPT/HCPCS: 36415; 80048; 81001; 85025; 99283

== ENCOUNTER 2025-06-14 13:45 | Outpatient (AMB) | payer BC, SELFPAY ==
--- NOTE | 2025-06-14 14:01 | MHC.PC.OV ---
Vital Signs 06/14/25 14:02 Height 4 ft 10 in Weight 133 lb BMI 27.8 BP 122/80 Blood Pressure Location Rt brachial Position Sitting Pulse 69 Pulse Source Pulse Oximeter Temp 98.9 F Temp Source Temporal Artery Scan Pulse Oximetry (%) 99 Oxygen Delivery Method Room Air Intake Visit Reasons: f/u for food allergy reaction from 06/13 (see comm Broadcast Operations Engineer Required: No Accompanied by: Self / Same As Patient Allergies amoxicillin Allergy (Verified 06/14/25 14:02) Hives shellfish derived (shellfish) Allergy (Verified 06/14/25 14:02) Unknown Sulfa (Sulfonamide Antibiotics) Allergy (Verified 06/14/25 14:02) Vomiting Medication List - Last Reconciled 06/25/25 by CLAIRE Valencia cetirizine (Zyrtec) 10 mg PO DAILY epinephrine (EpiPen 2-Flaquito) 0.3 mg (0.3 mL) IM Q10M PRN estradiol 1 patch transdermal 2XW Tobacco use date assessed: 06/14/25 Dental Screening Dental Screen Date: 06/14/25 Did you have a dental visit in the last 12 months?: Yes Did you have a dental problem in the last 6 months where you did not have access to dental care?: No HPI HPI Comments History of Present Illness Details The patient is a 44-year-old female here with in urgent visit presenting for evaluation of an allergic reaction that occurred after eating pumpkin risotto for dinner. She initially experienced a tickling sensation in her throat, which she dismissed. She took a Zyrtec as symptoms progressed to feeling hot, feeling like she was going to pass out, and nausea. While attempting to vomit, she fell and struck her nose on the toilet, causing some bleeding, but she does not recall the actual act of vomiting. Following this, she developed urticaria that began on her face and spread to her chest, back, head, ears, and eventually down her legs to her feet and toes. The hives resolved completely after approximately seven hours, though she reports some residual pruritus. Throughout the episode, the patient did not experience any dyspnea, wheezing, throat swelling, or voice changes. 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 She investigated the meal from the restaurant and suspects possible cross-contamination, as the only new ingredient was mitchell. The patient is one week post-hysterectomy with removal of a bladder adhesion and reports her abdomen feels okay. Medical History: - History of anaphylaxis secondary to shrimp Surgical History: - Hysterectomy with removal of bladder adhesion (one week prior) Patient was informed and verbally consented to the use of an ambient scribe for clinic note documentation during this visit. [facility] Medical History Fatigue Flank pain, acute Abdominal pain Family History Mother No problems noted. Father No problems noted. Social History Housing: House Patient Tobacco Use Status: Never used Tobacco e-Cigarette/Vaping Use: Never Used service: No Current occupational status: employed Cognitive needs: No Hearing needs: No Vision needs: Yes (rx glasses) Questionnaire PHQ-9 Over the last 2 weeks, how often have you been bothered by any of the following problems? 1. Little interest or pleasure in doing things: not at all 2. Feeling down, depressed, or hopeless: not at all 3. Trouble falling or staying asleep, or sleeping too much: not at all 4. Feeling tired or having little energy: not at all 5. Poor appetite or overeating: not at all 6. Feeling bad about yourself - or that you are a failure or have let yourself or your family down: not at all 7. Trouble concentrating on things, such as reading the newspaper or watching television: not at all 8. Moving or speaking so slowly that other people could have noticed. Or the opposite - being so fidgety or restless that you have been moving around a lot more than usual: not at all 9. Thoughts that you would be better off or of hurting yourself in some way: not at all Total score: 0 Depression Screening Interpretation: Negative Depression Screening Done: Yes Source: Developed by Drs. Adithya Nunes, Xochilt Crowell, Oscar Batista and colleagues, with an educational eric from [employer]. Thrive Questionnaire Date Thrive assessed: 06/14/25 I am a: Patient Within the past 12 months, did the food you bought not last and you didn't have the money to get more?: Never true Within the past 12 months, did you worry whether your food would run out before you got money to buy more?: Never true Do you have trouble paying for medicines?: No Do you have trouble getting transportation to medical appointments?: No Do you have trouble paying your heating and electricity bill?: No Do you have trouble taking care of your child, family member or friend?: No Do you have trouble with day-to-day activities such as bathing, preparing meals, shopping, managing finances, etc.?: No Are you currently unemployed and looking for a job?: No Are you interested in more education?: No THRIVE Score: 0 AUDIT C Alcohol Use Questionnaire (AUDIT-C) 1. How often do you have a drink containing alcohol?: Monthly or less 2. How many drinks containing alcohol do you have on a typical day when you are drinking?: 1 or 2 3. How often do you have six or more drinks on one occasion?: Less than monthly Total Score: 2 MELY-7 AMB Questionnaire MELY-7 Date MELY - 7 assessed: 06/14/25 Feeling nervous, anxious, or on edge: 0 = Not at all Not being able to stop or control worryin = Not at all Worrying too much about different things: 0 = Not at all Trouble relaxin = Not at all Being so restless that it is hard to sit still: 0 = Not at all Becoming easily annoyed or irritable: 0 = Not at all Feeling afraid as if something awful might happen: 0 = Not at all Total MELY-7 score (0-4 normal; 5-9 mild; 10-14 moderate; 15-21 severe): 0 Source: Developed by Drs. Adithya Nunes, Xochilt Crowell, Oscar Batista and colleagues, with an educational eric from [employer]. Review of Systems Narrative - Constitutional: Reports feeling hot and feeling faint. - HEENT: Reports a tickling sensation and current scratchiness in the throat. - Reports nasal pain, minimal swelling, and some intermittent epistaxis after trauma. - Denies throat swelling or voice changes. - Integumentary: Reports widespread urticaria that started on her face and migrated down her body, which has now resolved. - Reports residual pruritus. - Respiratory: Denies dyspnea or wheezing. - Gastrointestinal: Reports nausea and one episode of vomiting. Physical exam (Primary Care) Vital Signs: Last Vital Signs Temp 98.9 F 06/14/25 14:02 Pulse 69 06/14/25 14:02 BP 122/80 06/14/25 14:02 Pulse Ox 99 06/14/25 14:02 Oxygen Delivery Method Room Air 06/14/25 14:02 BMI result Body Mass Index 27.8 GENERAL Well developed, Well nourished, in no apparent distress HEENT Head-Normocephalic Eyes- PERRLA, EOMI, Conjuctiva clear, lids WNL Ears- Canals clear, TMs WNL Mouth/Throat-No lesions, no erythema, no exudate Neck- Supple, No lymphadenopathy, thyroid WNL RESPIRATORY Normal I:E, Clear to auscultation CARDIOVASCULAR Regular, rate and rhythm, No murmurs or rubs GASTROINTESTINAL Soft, nontender, normal bowel sounds, no masses NEUROLOGICAL Gait normal PSYCHIATRIC Oriented to person, place and time Mood and affect WNL Appearance WNL Speech WNL Thought processes WNL Tobacco/Smoking Status: Tobacco use Status Tobacco use date assessed 06/14/25 06/14/25 14:03 Patient Tobacco Use Status Never used Tobacco 06/14/25 14:03 e-Cigarette/Vaping Use Never Used 06/14/25 14:03 PHQ-9: PHQ-9 Score PHQ-9: Total score 0 06/14/25 14:08 Depression Screening Interpretation: Negative Thrive Assessment: Date of Thrive Assessment Date Thrive assessed 06/14/25 06/14/25 14:03 Coding Level of Care Code Established Pt Est Pt Level 3 (92838) Patient Type Established Diagnoses Allergic reaction, initial encounter T78.40XA Encounter type: initial encounter Contusion of nose, initial encounter S00.33XA Encounter type: initial encounter Postoperative state Z98.890 Time Spent (min) 25 Comment Time spent on H&P, patient education and orders Assessment & Plan Assessment & Plan (1) Allergic reaction: Code(s): T78.40XA - Allergy, unspecified, initial encounter Qualifiers: Encounter type: initial encounter Qualified Code(s): T78.40XA - Allergy, unspecified, initial encounter Plan: The patient experienced an acute allergic reaction, likely due to food cross-contamination, presenting with urticaria, a sensation of heat, and near-syncope. The reaction did not appear to be a full-blown anaphylactic event as there was no respiratory compromise. A prescription for an EpiPen will be sent to the patient's pharmacy, [facility]. The patient was advised to keep diut-[id number]-[id number] Benadryl at home for future reactions, as it works faster than Zyrtec. Instructions were provided to use the EpiPen and immediately go to the emergency room for any severe symptoms such as difficulty breathing. If the reaction recurs, the patient should follow up for a referral to an clinical laboratory assistant for retesting. (2) Nasal contusion: Code(s): S00.33XA - Contusion of nose, initial encounter Qualifiers: Encounter type: initial encounter Qualified Code(s): S00.33XA - Contusion of nose, initial encounter Plan: The patient sustained a minor soft tissue injury to the nose after falling. She was reassured that the injury is expected to heal on its own. She was advised to seek follow-up care for a potential referral to an ENT specialist if she experiences worsening symptoms, such as persistent bleeding or breathing difficulties. (3) Postoperative state: Code(s): Z98.890 - Other specified postprocedural states Plan: The patient is one week status-post hysterectomy. She reports her abdomen feels okay and her surgeon's office was not concerned about this recent event. Plan I explained to the patient that her symptoms were consistent with an allergic reaction, most likely due to food cross-contamination, rather than a full-blown anaphylactic event, as she did not have respiratory compromise. I recommended she keep Benadryl at home for acute symptoms as it works faster than Zyrtec. We discussed the importance of having an EpiPen, and I have sent a prescription to her pharmacy. I instructed her that if she ever needs to use the EpiPen, she must go to an emergency room for monitoring because the reaction can return after the medication wears off. Regarding her nasal injury, I explained it appears to be a minor soft tissue injury that should heal on its own, but she should call if she has increased breathing difficulty or persistent bleeding. We will provide a referral to an clinical laboratory assistant for retesting if these reactions become recurrent. Medications: New epinephrine (EpiPen 2-Flaquito) for 3 doses 0.3 mg (0.3 mL) IM Q10M PRN 2 ea 1RF anaphylaxis Patient Instructions: - I have sent a prescription for an EpiPen to your pharmacy[facility]. - You should have this available in case of a future severe allergic reaction. - If you ever use the EpiPen, you must go to the emergency room right after for monitoring. - For milder reactions like hives, keep bsna-pfz-[id number] Benadryl handy, as it will provide faster relief than Zyrtec. - If you have another allergic reaction, please call our office so we can arrange for you to see an child specialist for testing. - Your nose will likely be sore for a few days but should heal without issue. - Please call if you notice the bleeding won't stop or if you start having trouble breathing through it.
[2025-06-14 14:02] VITALS: BP 122/80; PULSE 69; TEMP 37.2; O2SAT 99; BMI 27.8
--- OUTSIDE RECORDS SUMMARY | 2025-06-14 17:09 | XMS_ITS | Encounter Summary ---
Author Organization [facility] Address [address] [place] [address] Phone Care Team Providers Care Open Winder Name Role Phone BaileyHarjeet DO Unavailable [phone] Len Galloway MD Primary Care Provid er Reason for Visit * Reason Onset Date Comments Allergic Reaction 06/14/2025 Post-op 06/14/2025 Encounter Details Date Type Department Care Team (Late st Contact Info) Description 06/14/2025 Nurse Triage [facility] Minimally Invasive Gynecologic Surgery [address] [address], [address] [place] [address] Liset Christiansen RN [address] [place] [address] [email or web address] Allergic Reaction; Post-op Social History Tobacco Use Types Packs/Day Years [...] Answer Date Recorded No 12/27/2022 No 12/27/2022 Reliable internet access at home? Not on file 12/27/2022 Device with a working camera? 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 to report allergic reaction with vomiting Background: Date of Surgery: 06/06/2025 Pre-procedure diagnosis: Pre-Op Diagnosis Codes: * Abnormal uterine bleeding (AUB) [N93.9] * Pelvic pain [R10.20] * Fibroids [D21.9] * Endometriosis [N80.9] Post-procedure diagnosis: Post-Op Diagnosis Codes: * Abnormal uterine bleeding (AUB) [N93.9] * Pelvic pain [R10.20] * Fibroids [D21.9] * Endometriosis [N80.9] Procedure name: Procedure(s): LAPAROSCOPIC HYSTERECTOMY TOTAL WITH BILATERAL SALPINGECTOMY CYSTOSCOPY PELVIC FLOOR TRIGGER POINT INJECTIONS (MARCAINE) Surgeon: Surgeon(s): Rocio Balderas MD Fellow: Rachela Cabrera MD Assessment: @ 630 last night Beena had pumpkin Risotto then proceeded to feel scratchy throat and developed hives She vomited with at side but blacked out and does not remember vomiting She also hit her nose on toilet which caused bloody nose After feeling better she took Zyrtec Hives are resloving She is calling worried that the vomiting could have affected healing- did not hit abd Currently: Not SOB No residual symptoms Moving bowels Urinating Does have pain that last a minute or so after the void- no pain during urination ( since surgery ) Not taking any pain medications Eating and drinking I have advised her to call PCP to discuss incident and any follow up Request/Recommendation: Pt verbalized understanding and agreement with plan. Pt advised to call back with any questions or concerns. Phone encounter time: 10 minutes documented in this encounter Plan of Treatment Upcoming Encounters Date Type Department Care Team ([facility] st Contact Info) Description 07/05/2025 1:30 PM EST Telemedicine [facility] Minimally Invasive Gynecologic Surgery [address] [place] [address] [address], [address] [place] [address] Rocio Balderas MD [address] [place] [address] community health [place] [address] [email or web address] documented as of this encounter Visit Diagnoses Not on filedocumented in this encounter Care Teams Open Winder Relationship Specialty Start Date End Date Len Galloway MD [address] [place] [address] PCP - General Internal Medicine 04/02/25 Harjeet Avalos DO [address] [place] [address] Orthopedics & Sports Medicine, [facility] [place] [address] [email or web address] Historical LMR Provider 05/20/17 documented as of this encounter Additional Source Comments The information contained in this document represents components of the legal health record. It is not the complete legal health record.[facility]
--- OUTSIDE RECORDS SUMMARY | 2025-06-14 17:09 | XMS_ITS | Encounter Summary ---
Author Organization [facility] Address [address] [facility] [address] [place] [address] Phone Care Team Providers Care Bulk Picker Name Role Phone Pedro Pablo Rodriguez MD Primary Care Provider Harjeet Avalos DO Unavailable [phone] Pedro Pablo Rodriguez MD Unavailable [phone] Roxi Espinal MD Unavailable [phone] Len Galloway MD Primary Care Provid er Encounter Details Date Type Department Care Team (Late Contact Info) Description 06/30/2017 Procedure Pass [facility] [address] [id number] Social History Tobacco Use Types Packs/Day Years [...] Start Date Job End Date 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[employer] Not on file Not on file Not on file documented as of this encounter Plan of Treatment Upcoming Encounters Date Type Department Care Team (Late st Contact Info) Description 07/05/2025 1:30 PM EST Telemedicine [facility] Minimally Invasive Gynecologic Surgery [address] [facility] [address], [address] [place] [address] Rocio Balderas MD [address] [facility] tank [place] [address] [email or web address] documented as of this encounter Visit Diagnoses Not on filedocumented in this encounter Care Teams Bulk Picker Relationship Specialty Start Date End Date Pedro Pablo Rodriguez MD [address] [place] [address] [place] [address] PCP - General Internal Medicine 11/18/15 04/01/25 Len Galloway MD [address] [place] [address] [place] [address] PCP - General Internal Medicine 04/02/25 Harjeet Avalos DO [address] [place] [address] Orthopedics & Sports Medicine, [facility] [place] [address] [email or web address] Historical LMR Provider 05/20/17 Pedro Pablo Rodriguez MD [address] [place] [address] [place] [address] Historical LMR Provider 05/20/17 2 Roxi Espinal MD [address] [place] [address] Orthopedics & Sports Medicine, [facility] [place] [address] [email or web address] Historical LMR Provider 05/20/17 documented as of this encounter Additional Source Comments The information contained in this document represents components of the legal health record. It is not the complete legal health record.[facility]
--- OUTSIDE RECORDS SUMMARY | 2025-06-14 17:09 | XMS_ITS | Encounter Summary ---
Author Organization [facility]ly [facility] Address [address] [place] [address] Phone Care Team Providers Care Hospital Fellow Name Role Phone Pedro Pablo Rodriguez MD Primary Care Provider Harjeet Avalos DO Unavailable [phone] Pedro Pablo Rodriguez MD Unavailable [phone] Roxi Espinal MD Unavailable [phone] Len Galloway MD Primary Care Provid er Reason for Referral * MRI/CAT Scan - Closed Specialty Diagnoses / Procedures Referred By Ryan mckeon Referred To Contact Radiology Diagnoses Pain Procedures MRI Knee (Right) Sarkis Garcia MD Phone: tel: [email or web address] Referral ID Status Reason Start Date Expiration Date Visits Re quested Visits Authorized [id number] Closed 09/16/2018 10/16/2018 2 1 Encounter Details Date Type Department Care Team (Late st Contact Info) Description 09/05/2018 Ancillary Orders [facility] Orthopedics - [place] [address] [facility] 1st [place] [address] Sarkis Garcia MD [address] [place], [place] [id number] [email or web address] Pain Social History Tobacco Use Types [...] Start Date Job End Date 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 on file Not on file Not on file documented as of this encounter Plan of Treatment Upcoming Encounters Date Type Department Care Team (Late st Contact Info) Description 07/05/2025 1:30 PM EST Telemedicine [facility] Minimally Invasive Gynecologic Surgery [address] [place], [place] [address], [address] [place] [address] Rocio Balderas MD [address] [place] [address] [place] [address] [email or web address] documented as of this encounter Results * MRI KNEE WITHOUT CONTRAST (RIGHT) (09/16/2018 8:41 AM EST) Anatomical Region Laterality Modality Knee Right Magnetic Resonan ce 09/16/2018 8:41 AM EST Impressions 09/16/2018 11:46 AM EST 1. 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 2. Decreased scarring in Hoffa's fat pad status post synovectomy and contracture release. ATTESTATION: Sushil Sonw, as teaching physician have reviewed the images, [...] by heterogeneous repair tissue congruent with the redding patellar cartilage. No hypertrophy or delamination. There is irregularity in the underlying redding bone in the lateral patella with small marginal osteophytes, similar to prior. [place] Cartilage: - Patellofemoral: The redding trochlear cartilage is intact. - Medial Tibiofemoral: [...] by heterogeneous repair tissue congruent with the redding patellar cartilage. No hypertrophy or delamination. There is irregularity in the underlying redding bone in the lateral patella with small marginal osteophytes, similar to prior. [place] Cartilage: - Patellofemoral: The redding trochlear cartilage is intact. - Medial Tibiofemoral: Medial femoral condyle and medial tibial plateau cartilage is intact. - Lateral Tibiofemoral: Lateral femoral condyle and lateral tibial plateau cartilage is intact. Miscellaneous: No joint effusion. There is decreased scarring in Hoffa's fat pad. IMPRESSION: 1. 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 2. Decreased scarring in Hoffa's fat pad status post synovectomy and contracture release. ATTESTATION: Sushil Snow, as teaching physician have reviewed the images, if any, for this patient's exam, and if necessary, have edited the report originally created by Cinthya Hartmann. Sarkis Garcia MD IMG MR EXTREMITY Final Result documented in this encounter Visit Diagnoses Diagnosis Pain Generalized pain Pain Generalized pain documented in this encounter Care Teams Hospital Fellow Relationship Specialty Start Date End Date Pedro Pablo Rodriguez MD [address] [place] [address] [place] [address] PCP - General Internal Medicine 11/18/15 04/01/25 Len Galloway MD [address] [place] [address] [place] [address] PCP - General Internal Medicine 04/02/25 Harjeet Avalos DO [address] [place] [address] Orthopedics & Sports [facility], [place] [address] [email or web address] Historical LMR Provider 05/20/17 Pedro Pablo Rodriguez MD [address] [place] [address] [place] [address] Historical LMR Provider 05/20/17 2 Roxi Espinal MD [address] [place] [address] Orthopedics Sports [facility], [place], [place] [id number] Historical LMR Provider 05/20/17 documented as of this encounter Additional Source Comments The information contained in this document represents components of the legal health record. It is not the complete legal health record.[facility]
--- OUTSIDE RECORDS SUMMARY | 2025-06-14 17:09 | XMS_ITS | Encounter Summary ---
Author Organization [facility] Address [address] [facility] [address] [place] [address] Phone Care Team Providers Care Tag Press Operator Name Role Phone Pedro Pablo Rodriguez MD Primary Care Provider Harjeet Avalos DO Unavailable [phone] Pedro Pablo Rodriguez MD Unavailable [phone] Roxi Espinal MD Unavailable [phone] Len Galloway MD Primary Care Provid er Encounter Details Date Type Department Care Team (Late st Contact Info) Description 12/10/2016 Procedure Pass [facility] Periop 75 [place] [address] Social History Tobacco Use Types Packs/Day Years [...] Start Date Job End Date 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 documented as of this encounter Visit Diagnoses Not on filedocumented in this encounter Care Teams Tag Press Operator Relationship Specialty Start Date End Date Pedro Pablo Rodriguez MD [address] [place] [address] [place] [address] PCP - General Internal Medicine 11/18/15 04/01/25 Len Galloway MD [address] [place] [address] [place] [address] PCP - General Internal Medicine 04/02/25 Harjeet Avalos DO 4 [facility] [place] [place] [address] Historical LMR Provider 05/20/17 Pedro Pablo Rodriguez MD [address] [place] [address] [place] [address] Historical LMR Provider 05/20/17 2 Roxi Espinal MD 4 [facility] [place] [address] Historical LMR Provider 05/20/17 documented as of this encounter Additional Source Comments The information contained in this document represents components of the legal health record. It is not the complete legal health record.[facility]
--- OUTSIDE RECORDS SUMMARY | 2025-06-14 17:09 | XMS_ITS | Encounter Summary ---
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[employer] [facility] Not on file Not on file Not on file documented as of this encounter Plan of Treatment Upcoming Encounters Date Type Department Care Team (Late st Contact Info) Description 07/05/2025 1:30 PM EST Telemedicine [facility] Minimally Invasive Gynecologic Surgery [address] [place] [address] ASB1-3, [address] [place] [address] Rocio Balderas MD 75 [facility] [place] [facility] exceptional student [place] [address] [email or web address] documented as of this encounter Visit Diagnoses Not on filedocumented in this encounter Care Teams Filling Hauler Weaving Relationship Specialty Start Date End Date Len Galloway MD [address] [place] [address] PCP - General Internal Medicine 04/02/25 Harjeet Avalos DO [address] [place] [address] Orthopedics & [facility] [place] [address] [email or web address] Historical LMR Provider 05/20/17 documented as of this encounter Additional Source Comments The information contained in this document represents components of the legal health record. It is not the complete legal health record.[facility]
--- OUTSIDE RECORDS SUMMARY | 2025-06-14 17:09 | XMS_ITS | Encounter Summary ---
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 [facility] Not on file Not on file Not on file documented as of this encounter Plan of Treatment Upcoming Encounters Date Type Department Care Team (Late st Contact Info) Description 07/05/2025 1:30 PM EST Telemedicine [facility] Minimally Invasive Gynecologic Surgery [address] [place] [address] ASB1-3, [address] [place] [address] Rocio Balderas MD [address] [place] [address] [place] [address] [email or web address] documented as of this encounter Visit Diagnoses Not on filedocumented in this encounter Care Teams Packing House Laborer Relationship Specialty Start Date End Date Len Galloway MD [address] [place] [address] PCP - General Internal Medicine 04/02/25 Harjeet Avalos DO [address] [place] [address] Orthopedics & Sports [facility] [place] [address] [email or web address] Historical LMR Provider 05/20/17 documented as of this encounter Additional Source Comments The information contained in this document represents components of the legal health record. It is not the complete legal health record.[facility]
--- OUTSIDE RECORDS SUMMARY | 2025-06-14 17:09 | XMS_ITS | Encounter Summary ---
Author Organization [facility] Address [address] [facility] [place] [address] Phone Care Team Providers Care Dock Associate Name Role Phone Pedro Pablo Rodriguez MD Primary Care Provider Harjeet Avalos DO Unavailable [phone] Pedro Pablo Rodriguez MD Unavailable [phone] Roxi Espinal MD Unavailable [phone] Len Galloway MD Primary Care Provid er Encounter Details Date Type Department Care Team (Late Contact Info) Description 09/05/2018 Procedure Pass [facility] [address] [id number] Social History Tobacco Use Types Packs/Day Years [...] Start Date Job End Date 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 on file Not on file Not on file documented as of this encounter Plan of Treatment Upcoming Encounters Date Type Department Care Team (Late st Contact Info) Description 07/05/2025 1:30 PM EST Telemedicine [facility] Minimally Invasive Gynecologic Surgery 75 [facility] ASB1-3, [address] [place] [address] Rocio Balderas MD 75 [facility] urban [place] [address] [email or web address] documented as of this encounter Visit Diagnoses Not on filedocumented in this encounter Care Teams Dock Associate Relationship Specialty Start Date End Date Pedro Pablo Rodriguez MD [address] [place] [address] [place] [address] PCP - General Internal Medicine 11/18/15 04/01/25 Len Galloway MD [address] [place] [address] [place] [address] PCP - General Internal Medicine 04/02/25 Harjeet Avalos DO [address] [place] [address] Orthopedics & Sports Medicine, [facility] [place] [address] [email or web address] Historical LMR Provider 05/20/17 Pedro Pablo Rodriguez MD [address] [place] [address] [place] [address] Historical LMR Provider 05/20/17 2 Roxi Espinal MD [address] [place] [address] Orthopedics & Sports Medicine, [facility] [place] [address] [email or web address] Historical LMR Provider 05/20/17 documented as of this encounter Additional Source Comments The information contained in this document represents components of the legal health record. It is not the complete legal health record.[facility]
--- OUTSIDE RECORDS SUMMARY | 2025-06-14 17:09 | XMS_ITS | Encounter Summary ---
Author Organization [facility] Address [address] [facility] [address] [place] [address] Phone Care Team Providers Care Program Review Director Name Role Phone Pedro Pablo Rodriguez MD Primary Care Provider Harjeet Avalos DO Unavailable [phone] Pedro Pablo Rodriguez MD Unavailable [phone] Roxi Espinal MD Unavailable [phone] Len Galloway MD Primary Care Provid er Encounter Details Date Type Department Care Team (Late st Contact Info) Description 09/05/2020 Procedure Pass [address] [place] [address] Social History Tobacco Use Types Packs/Day Years [...] Date Job End Date 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[employer] [...] Upcoming Encounters Date Type Department Care Team ([facility] st Contact Info) Description 07/05/2025 1:30 PM EST Telemedicine [facility] Minimally Invasive Gynecologic Surgery 75 [facility] ASB1-3, [address] [place] [address] Rocio Balderas MD [address] [place] [address] [place] [address] [email or web address] documented as of this encounter Visit Diagnoses Not on filedocumented in this encounter Care Teams Program Review Director Relationship Specialty Start Date End Date Pedro Pablo Rodriguez MD [address] [place] [address] PCP - General Internal Medicine 11/18/15 04/01/25 Len Galloway MD [address] [place] [address] PCP - General Internal Medicine 04/02/25 Harjeet Avalos DO [address] [place] [address] Orthopedics & Sports Medicine, [facility] [place] [address] [email or web address] Historical LMR Provider 05/20/17 Pedro Pablo Rodriguez MD [address] [place] [address] Historical LMR Provider 05/20/17 2 Roxi Espinal MD [address] [place] [address] Orthopedics & Sports Medicine, [facility] [place] [address] [email or web address] Historical LMR Provider 05/20/17 documented as of this encounter Additional Source Comments The information contained in this document represents components of the legal health record. It is not the complete legal health record.[facility]
--- OUTSIDE RECORDS SUMMARY | 2025-06-14 17:09 | XMS_ITS | Encounter Summary ---
Author Organization [facility] Address [address] [place] [address] Phone Care Team Providers Care Pin Feather Machine Operator Name Role Phone Pedro Pablo Rodriguez MD Primary Care Provider Harjeet Avalos DO Unavailable [phone] Pedro Pablo Rodriguez MD Unavailable [phone] Roxi Espinal MD Unavailable [phone] Len Galloway MD Primary Care Provid er Encounter Details Date Type Department Care Team (Late st Contact Info) Description 12/24/2020 Procedure Pass [facility] @ [address] [address] Social History Tobacco Use Types Packs/Day Years [...] Job Start Date 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 Not on file Not on file documented as of this encounter Plan of Treatment Upcoming Encounters Date Type Department Care Team (Late st Contact Info) Description 07/05/2025 1:30 PM EST Telemedicine [facility] Minimally Invasive Gynecologic Surgery 75 [facility] ASB1-3, [address] [place] [address] Rocio Balderas MD 75 [facility] milker machine-[facility] [place] [address] [email or web address] documented as of this encounter Visit Diagnoses Not on filedocumented in this encounter Care Teams Pin Feather Machine Operator Relationship Specialty Start Date End Date Pedro Pablo Rodriguez MD [address] [place] [address] [place] [address] PCP - General Internal Medicine 11/18/15 04/01/25 Len Galloway MD [address] [place] [address] [place] [address] PCP - General Internal Medicine 04/02/25 Harjeet Avalos DO [address] [place] [address] Orthopedics & Sports [facility], [place] [address] [email or web address] Historical LMR Provider 05/20/17 Pedro Pablo Rodriguez MD [address] [place] [address] [place] [address] Historical LMR Provider 05/20/17 2 Roxi Espinal MD [address] [place] [address] Orthopedics & Sports Medicine, [place] [address] [email or web address] Historical LMR Provider 05/20/17 documented as of this encounter Additional Source Comments The information contained in this document represents components of the legal health record. It is not the complete legal health record.[facility]
--- OUTSIDE RECORDS SUMMARY | 2025-06-14 17:09 | XMS_ITS | Encounter Summary ---
Author Organization [facility] Address [address] [place] [address] Phone Care Team Providers Care Wound Care Center Consultant Name Role Phone Pedro Pablo Rodriguez MD Primary Care Provider Harjeet Avalos DO Unavailable [phone] Pedro Pablo Rodriguez MD Unavailable [phone] Roxi Espinal MD Unavailable [phone] Len Galloway MD Primary Care Provid er Encounter Details Date Type Department Care Team (Late st Contact Info) Description 03/19/2017 Procedure Pass [facility] @ [address] [address] Social History Tobacco Use Types Packs/Day Years [...] 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 on file Not on file Not on file documented as of this encounter Plan of Treatment Upcoming Encounters Date Type Department Care Team (Late st Contact Info) Description 07/05/2025 1:30 PM EST Telemedicine [facility] Minimally Invasive Gynecologic Surgery 75 [facility] ASB1-3, [address] [place] [address] Rocio Balderas MD 75 [facility] environmental compliance [place] [address] [email or web address] documented as of this encounter Visit Diagnoses Not on filedocumented in this encounter Care Teams Wound Care Center Consultant Relationship Specialty Start Date End Date Pedro Pablo Rodriguez MD [address] [place] [address] [place] [address] PCP - General Internal Medicine 11/18/15 04/01/25 Len Galloway MD [address] [place] [address] PCP - General Internal Medicine 04/02/25 Harjeet Avalos DO [address] [place] [address] Orthopedics & Sports [facility], [place] [address] [email or web address] Historical LMR Provider 05/20/17 Pedro Pablo Rodriguez MD [address] [place] [address] [place] [address] Historical LMR Provider 05/20/17 2 Roxi Espinal MD [address] [place] [address] Orthopedics & Sports Medicine, [facility] [place] [address] [email or web address] Historical LMR Provider 05/20/17 documented as of this encounter Additional Source Comments The information contained in this document represents components of the legal health record. It is not the complete legal health record.[facility]
== END 2025-06-14 15:01 | disposition home or self-care (01) ==
LOC: HO.HMCHD 13:46
PROVIDERS: PCP Internal Medicine; Visit Provider Physician Assistant Medical
DX: T78.40XA Allergy, unspecified, initial encounter (principal); S00.33XA Contusion of nose, initial encounter; Z98.890 Other specified postprocedural states